=== PATIENT | male | born 1970 | race Two or more races ===

== ENCOUNTER 2017-06-20 06:22 | Day surgery (SDC) | payer BC ==
[~2017-06-20 06:22] MED LIST: KETOROLAC TROMETHAMINE 0.45% 4 DROP/0.4 ML DROPERETTE OD PRN
[2017-06-20] MEDS ORDERED: MIDAZOLAM 2 MG/2 ML INJ ONE (06:53)
[2017-06-20] MEDS ORDERED: FENTANYL CITRATE INJ/PF 100 MCG/2 ML AMPUL ONE (06:53)
[2017-06-20] MEDS: TROPICAMIDE 1% OPH SOLN 3 ML OD PRN ×3 (06:54→07:14)
[2017-06-20] MEDS: BESIFLOXACIN HCL 0.6% OPH SUSP 5 ML BOTTLE OD PRN ×3 (06:54→08:03)
[2017-06-20] MEDS: CYCLOPENTOLATE 0.2%/PHENYLEPHRINE 1% OPH SOLN 2 ML OD PRN ×3 (06:54→07:14)
[2017-06-20] MEDS: TETRACAINE HCL 0.5% OPH SOLN 2 ML OD PRN ×3 (06:55→07:40)
[2017-06-20] MEDS ORDERED: LIDOCAINE 1% INJ-PF (10 MG/ML) 30 ML SDV ONE (07:12)
[2017-06-20] MEDS ORDERED: CHONDR SU A NA/HYALUR INTRAOC KIT (SURGICARE) ONE (07:12)
[2017-06-20] MEDS ORDERED: EPINEPHRINE INJ/PF 1 MG/1 ML AMPULE ONE (07:12)
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
--- NOTE | 2017-06-20 20:33 | [facility] OPERATIVE REPORT E ---
[facility] Operative Report NAME: DEMARIO AMEZQUITA AGE: 47Y DATE OF SURGERY: 06/20/2017 ROOM: PREOPERATIVE DIAGNOSIS: CATARACT, RIGHT EYE. POSTOPERATIVE DIAGNOSIS: CATARACT, RIGHT EYE. OPERATION: Cataract extraction with intraocular lens implant of the right eye. SURGEON: WILBERTO SYKES M.D. ANESTHESIA: Topical. PROCEDURE: After obtaining appropriate consent, the patient's right eye was prepped and draped in sterile fashion as well as the surgeon in a sterile manner and cataract surgery was started. First a paracentesis blade was used to make a small side-port incision. Viscoelastic was used to inflate the anterior chamber. Next a 2.4 mm incision was made with the paracentesis blade. A continuous capsulorrhexis incision was made using a cystotome and Utrata forceps. Following this hydrodissection was carried out to make the lens fully loose and mobile and it was rotated 90 degrees. Following this, a yvdrzf-wbv-ugygfsf technique was used to phacoemulsify the lens with a CDE of 8.77. The remaining cortex was removed with irrigation/aspiration. Provisc was instilled into the capsular bag to inflate the bag. A SN60WF, 18.5 diopter lens was placed. The remaining viscoelastic material was removed with irrigation/aspiration. Following this, a 10-0 nylon suture was used to close the incision and it was found to be watertight. Vigamox was instilled in the eye and a protective shield was placed over the eye. The patient returned to the postoperative recovery in stable condition. DICTATING PHYSICIAN: WILBERTO SYKES M.D. [id number] PHY#: [id number] 2014 ID: [id number] JOB#: [id number] ACCT: [id number] cc:WILBERTO SYKES M.D. >
== END 2017-06-20 08:45 | disposition home or self-care (01) ==
LOC: SC 06:22 → EDBD 10:30
PROVIDERS: ATTEND Internal Medicine
PROC: 08RJ3JZ Replacement of Right Lens with Synthetic Substitute, Percutaneous Approach (ICD-10-PCS; principal; 2017-06-20 07:30)
DX: H25.041 Posterior subcapsular polar age-related cataract, right eye (principal); H25.12 Age-related nuclear cataract, left eye
CPT/HCPCS: 66984; V2632; J2250; J3490 ×2; J0171; J3010; 142

== ENCOUNTER 2020-05-27 07:41 | Inpatient (IN) | payer BC ==
[2020-05-27 08:45] LABS: VENOUS BLOOD BASE EXCESS 2.7 mmol/L; VENOUS BLOOD HCO3 28.4 mmol/L (20-32); VENOUS BLOOD PCO2 47.5 mmHg (35-63); VENOUS BLOOD PH 7.4 (7.30-7.42)
[2020-05-27 08:52] LABS: ABSOLUTE LYMPHOCYTES (AUTO) 0.9 10^3/uL (0.5-4.7); ABSOLUTE MONOCYTES (AUTO) 0.3 10^3/uL (0.1-1.4); ABSOLUTE NEUT (AUTO) 10.5 10^3/uL (1.7-8.2); BASOPHILS % (AUTO) 0.1 % (0-2); HEMATOCRIT 43.2 % (37.9-51.0); HEMOGLOBIN 14.9 g/dL (13.5-17.0); LYMPHOCYTES % (AUTO) 7.7 % (13-45); MEAN CORPUSCULAR HEMOGLOBIN 34.4 pg (27.0-33.4); MEAN CORPUSCULAR HGB CONC 34.4 g/dL (32.0-36.0); MEAN CORPUSCULAR VOLUME 100 fl (80-97); MONOCYTES % (AUTO) 2.5 % (3-13); PLATELET COUNT 102 10^3/uL (150-450); RED BLOOD COUNT 4.33 10^6/uL (4.35-5.55); RED CELL DISTRIBUTION WIDTH 14.6 % (11.5-14.0); SEGMENTED NEUTROPHILS % (AUTO) 89.7 % (42-78); TOTAL CELLS COUNTED % (AUTO) 100 %; WHITE BLOOD COUNT 11.7 10^3/uL (4.0-10.5)
--- NOTE | 2020-05-27 08:55 | RADIOLOGY REPORT (SQ) ---
EXAM DESCRIPTION: CHEST SINGLE VIEW IMAGES COMPLETED DATE/TIME: 05/27/2020 8:43 am REASON FOR STUDY: shortness of breath COMPARISON: None. EXAM PARAMETERS: NUMBER OF VIEWS: One view. TECHNIQUE: Single frontal radiographic view of the chest acquired. RADIATION DOSE: NA LIMITATIONS: None. FINDINGS: LUNGS AND PLEURA: Multifocal airspace opacities. MEDIASTINUM AND HILAR STRUCTURES: No masses. Contour normal. HEART AND VASCULAR STRUCTURES: Heart normal in size. Normal vasculature. BONES: No acute findings. HARDWARE: None in the chest. OTHER: No other significant finding. IMPRESSION: Multi lobar pneumonia. Given distribution, recommend consideration for atypical etiolog ies in treatment planning. TECHNICAL DOCUMENTATION: JOB ID: [id number] 2010 [employer]- All Rights Reserved Reading location - IP/workstation name: [email or web address]
[2020-05-27 09:02] LABS: ALBUMIN 2.9 g/dL (3.5-5.0); ALKALINE PHOSPHATASE 369 U/L (38-126); ANION GAP 8 (5-19); ASPARTATE AMINO TRANSFERASE 416 U/L (17-59); BILIRUBIN,DIRECT 1.8 mg/dL (0.0-0.4); BILIRUBIN,TOTAL 2.4 mg/dL (0.2-1.3); BLOOD UREA NITROGEN 9 mg/dL (7-20); CALCIUM 7.9 mg/dL (8.4-10.2); CARBON DIOXIDE 26 mmol/L (22-30); CHLORIDE 102 mmol/L (98-107); CREATINE KINASE 165 U/L (55-170); GLUCOSE 125 mg/dL (75-110); POTASSIUM 3.7 mmol/L (3.6-5.0); TOTAL PROTEIN 7.7 g/dL (6.3-8.2)
[2020-05-27] MEDS ORDERED: NORMAL SALINE 1000 ML 1,000 ML IV ONE (09:11)
[2020-05-27 09:12] LABS: CREATINE KINASE MB 1.07 ng/mL (<4.55)
[2020-05-27] MEDS ORDERED: CEFEPIME 2 GM/D5W RTU 2 GM/50 ML RTUPB IV ONE (09:14)
[2020-05-27] MEDS ORDERED: VANCOMYCIN HCL INJ 1000 MG VIAL IV ONE (09:15)
[2020-05-27 09:23] LABS: TROPONIN I < 0.012 ng/mL
[2020-05-27 10:09] LABS: ACETAMINOPHEN < 10 ug/mL (10-30)
--- NOTE | 2020-05-27 11:43 | ER Document Report ---
Entered by ELIANE YANES SCRIBE 05/27/20 0908 Acting as scribe for:LELAND ALMENDAREZ MD ED Respiratory Problem - General Chief Complaint: Breathing Difficulty Stated Complaint: CHEST PAIN/DIFFICULTY BREATHING Mode of Arrival: Wheelchair Information source: Patient Notes: This 50 year old male patient with no significant past medical history presents to the ED today with complaints of worsening shortness of breath and nonproductive cough that started x3 days ago. Patient states that he he noticed blood along with mucus out of his right nare after blowing his nose and that he is unsure of whether or not he had a fever. He also notes abdominal pain due to coughing. Denies any chest pain, headache, or sick contacts. 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 He does not take any medications or have any allergies. TRAVEL OUTSIDE OF THE [place] IN LAST 30 DAYS: Yes - Related Data Allergies/Adverse Reactions: No Known Allergies Allergy (Verified 06/20/17 06:50) Past Medical History - General Information source: Patient - Social History Smoking Status: Never Smoker Cigarette use (# per day): No Chew tobacco use (# tins/day): No Smoking Education Provided: No Frequency of alcohol use: None Drug Abuse: None Family History: Reviewed & Not Pertinent Patient has suicidal ideation: No Patient has homicidal ideation: No - Medical History Medical History: Negative Surgical Hx: Negative Review of Systems - Review of Systems Constitutional: See HPI EENT: See HPI, Nose discharge Cardiovascular: See HPI. denies: Chest pain Respiratory: See HPI, Cough, Short of breath. denies: Sputum Gastrointestinal: See HPI, Abdominal pain Genitourinary: No symptoms reported Male Genitourinary: No symptoms reported Musculoskeletal: No symptoms reported Skin: No symptoms reported Hematologic/Lymphatic: No symptoms reported Neurological/Psychological: See HPI. denies: Headaches -: Yes All other systems reviewed and negative Physical Exam - Vital signs Vitals: Temp Pulse Resp BP Pulse Ox 99.6 F 98 20 143/74 H 88 L 05/27/20 07:59 05/27/20 07:59 05/27/20 07:59 05/27/20 07:59 05/27/20 07:59 - General General appearance: Alert In distress: None - HEENT Head: Normocephalic, Atraumatic Eyes: Normal Extraocular movements intact: Yes Pupils: PERRL Pharynx: Erythema - mild Neck: Supple - Respiratory Chest status: Nontender Breath sounds: Decreased air movement - Diminished breath sound in bilateral bases, Rales - right base Chest palpation: Normal Notes: When patient was placed in the room, he was tachypneic and hypoxic, 88% on RA. Once placed on supplemental oxygen, sats came up to 95%. - Cardiovascular Rhythm: Regular. No: Tachycardia Heart sounds: Normal auscultation Murmur: No Friction rub: No Gallop: None auscultated - Abdominal Inspection: Obese Distension: No distension Bowel sounds: Normal Tenderness: Nontender - Abdomen soft, no point tenderness Organomegaly: No organomegaly - Back Back: Normal, Nontender - Extremities General upper extremity: Normal inspection General lower extremity: Normal inspection. No: Edema - Neurological Neuro grossly intact: Yes Orientation: AAOx4 [place] Coma Scale Eye Opening: Spontaneous [place] Coma Scale Verbal: Oriented [place] Coma Scale Motor: Obeys Commands Mina Coma Scale Total: 15 - Psychological Associated symptoms: Normal affect, Normal mood - Skin Skin Temperature: Warm Skin Moisture: Dry Skin Color: Normal Course - Re-evaluation Re-evalutation: 05/29/20 07:17 Patient resting comfortably on oxygen to maintain normal O2 sats. - Vital Signs Vital signs: Temp Pulse Resp BP Pulse Ox 96.9 F L 62 28 H 138/82 H 97 05/29/20 05:32 05/29/20 05:32 05/29/20 05:32 05/29/20 05:32 05/29/20 05:32 05/29/20 07:18 Vital signs stable pulse oximetry 97% - Laboratory Result Diagrams: 05/28/20 05:20 05/28/20 05:20 Laboratory results interpreted by me: 05/27/20 05/27/20 05/27/20 08:23 08:23 08:23 WBC 11.7 H RBC 4.33 L MCV 100 H MCH 34.4 H RDW 14.6 H Plt Count 102 L Lymph % (Auto) 7.7 L [place] % (Auto) 2.5 L Absolute Neuts (auto) 10.5 H Seg Neutrophils % 89.7 H D-Dimer Sodium 135.5 L Glucose 125 H Lactic Acid 2.5 H Calcium 7.9 L Ferritin Total Bilirubin 2.4 H Direct Bilirubin 1.8 H AST 416 H ALT 155 H Alkaline Phosphatase 369 H Lactate Dehydrogenase Albumin 2.9 L Acetaminophen COVID-19 ([place]) 05/27/20 05/27/20 05/27/20 08:23 08:23 08:23 WBC RBC MCV MCH RDW Plt Count Lymph % (Auto) [place] % (Auto) Absolute Neuts (auto) Seg Neutrophils % D-Dimer 1.29 H Sodium Glucose Lactic Acid Calcium Ferritin 1600.00 H Total Bilirubin Direct Bilirubin AST ALT Alkaline Phosphatase Lactate Dehydrogenase 408 H Albumin Acetaminophen < 10 L COVID-19 ([place]) 05/27/20 09:10 WBC RBC MCV MCH RDW Plt Count Lymph % (Auto) [place] % (Auto) Absolute Neuts (auto) Seg Neutrophils % D-Dimer Sodium Glucose Lactic Acid Calcium Ferritin Total Bilirubin Direct Bilirubin AST ALT Alkaline Phosphatase Lactate Dehydrogenase Albumin Acetaminophen COVID-19 ([place]) DETECTED H 05/29/20 07:18 Laboratories disclose mildly elevated white blood cell count 11.7 in an elevated ferritin elevated LDH lactate dehydrogenase. - Diagnostic Test Radiology reviewed: Image reviewed, Reports reviewed Radiology results interpreted by me: Chest X-Ray 05/27/20 08:31 IMPRESSION: Multi lobar pneumonia. Given distribution, recommend consideration for atypical etiologies in treatment planning. Abdomen Ultrasound 05/27/20 09:16 IMPRESSION: No evidence of cholelithiasis or cholecystitis. Nonvisualization of the pancreas and abdominal aorta due to obscuration by intervening bowel gas. Otherwise unremarkable examination. Chest/Abdomen CTA 05/27/20 11:25 IMPRESSION: 1. No evidence for acute pulmonary emboli. 2. Extensive bilateral multifocal peripheral and parenchymal ground-glass opacities/consolidation and areas of consolidation in the lower lobes bilaterally. Commonly reported imaging features of COVID-19 pneumonia are present. 3. Mediastinal and right hilar lymphadenopathy. 3. Additional findings as above. Abdomen/Pelvis CT 05/27/20 11:26 IMPRESSION: 1. Hepatic steatosis. 2. Prominence of the gallbladder wall. No gallstones. 3. Small uncomplicated inguinal hernias. 05/29/20 07:27 Radiology reports show that there is multi lobar pneumonia with groundglass opacities and consolidation. Also no evidence for pulmonary embolus on CT angiogram. Abdomen and pelvis CT did show a prominent gallbladder without any other significant findings of infection or inflammation about the biliary tree system. Abdominal ultrasound also disclose no evidence for cholelithiasis or cholecystitis. - EKG Interpretation by Me Additional EKG results interpreted by me: 05/29/20 07:28 Twelve-lead EKG shows normal sinus rhythm rate of 94 probable left atrial abnormality otherwise normal axis normal intervals WI interval QRS and QT. No signs of acute ST elevations. Discharge - Discharge Clinical Impression: Bilateral pneumonia, Hypoxia, Suspected COVID-19 virus infection Condition: Critical Disposition: ADMITTED INPATIENT Admitting Provider: Mg (Hospitalist) Unit Admitted: IMCU I personally performed the services described in the documentation, reviewed and edited the documentation which was dictated to the scribe in my presence, and it accurately records my words and actions.
--- NOTE | 2020-05-27 12:14 | RADIOLOGY REPORT (SQ) ---
EXAM DESCRIPTION: U/S ABDOMEN LIMITED W/O DOP IMAGES COMPLETED DATE/TIME: 05/27/2020 11:28 am REASON FOR STUDY: elevated LFTs COMPARISON: None. TECHNIQUE: Dynamic and static grayscale images acquired of the abdomen and recorded on PACS. Additio nal selected color Doppler and spectral images recorded. LIMITATIONS: None. FINDINGS: PANCREAS: Largely obscured by intervening bowel gas. LIVER: No masses. Echotexture normal. LIVER VASCULATURE: Normal directional flow of the main portal vein and hepatic veins. GALLBLADDER: No stones. Normal wall thickness. No pericholecystic fluid. ULTRASOUND-DETECTED MASTERSON'S SIGN: Negative. INTRAHEPATIC DUCTS AND COMMON DUCT: CBD and intrahepatic ducts normal caliber. No filling defects. INFERIOR VENA CAVA: Normal flow. AORTA: Largely obscured by intervening bowel gas. RIGHT KIDNEY: Normal size. Normal echogenicity. No solid or suspicious masses. No hydronephrosis. No calcifications. PERITONEAL AND RIGHT PLEURAL SPACE: No ascites or effusions. OTHER: No other significant findings. IMPRESSION: No evidence of cholelithiasis or cholecystitis. Nonvisualization of the pancreas and ab dominal aorta due to obscuration by intervening bowel gas. Otherwise unremarkable examination. TECHNICAL DOCUMENTATION: JOB ID: [id number] 2010 [employer]- All Rights Reserved Reading location - IP/workstation name: [email or web address]
--- NOTE | 2020-05-27 12:47 | RADIOLOGY REPORT (SQ) ---
EXAM DESCRIPTION: CT ABD/PELVIS WITH IV ONLY IMAGES COMPLETED DATE/TIME: 05/27/2020 12:32 pm REASON FOR STUDY: elevated LFTs/abd pain COMPARISON: None. TECHNIQUE: CT scan of the abdomen and pelvis performed using helical scanning technique with dynamic intravenous contrast injection. No oral contrast. Images reviewed with lung, soft tissue, and bone windows. Reconstructed coronal and sagittal MPR images reviewed. Delayed images for evaluation of the urinary system also acquired. All images stored on PACS. All CT scanners at this facility use dose modulation, iterative reconstruction, and/or weight based d osing when appropriate to reduce radiation dose to as low as reasonably achievable (ALARA). [facility]: Dose Right [facility]: CareDose [facility]: Dose Right [facility]: Teradose 4D [facility]: Philtro CONTRAST TYPE AND DOSE: contrast/concentration: Isovue 350.00 mmol/ml; Total Contrast Delivered: 100 .0 ml; Total Saline Delivered: 90.0 ml RENAL FUNCTION: BUN 9 creatinine 0.67 RADIATION DOSE: . LIMITATIONS: None. FINDINGS: LOWER CHEST: See separate report of the CT of the chest. LIVER: The liver is diffusely hypoattenuating. No hepatic mass is seen. SPLEEN: Normal size. No focal lesions. PANCREAS: No masses. No significant calcifications. No adjacent inflammation or peripancreatic fluid collections. Pancreatic duct not dilated. GALLBLADDER: There appears to be mild prominence of the gallbladder wall. No gallstones are seen. ADRENAL GLANDS: No significant masses or asymmetry. RIGHT KIDNEY AND URETER: No solid masses. No significant calcifications. No hydronephrosis or hyd roureter. LEFT KIDNEY AND URETER: No solid masses. No significant calcifications. No hydronephrosis or hydr oureter. AORTA AND VESSELS: No aneurysm. No dissection. Renal arteries, SMA, celiac without stenosis. RETROPERITONEUM: No retroperitoneal adenopathy, hemorrhage or masses. BOWEL AND PERITONEAL CAVITY: No masses or inflammatory changes. No free fluid or peritoneal masses. APPENDIX: Normal. PELVIS: No mass. No free fluid. Normal bladder. ABDOMINAL WALL: Bilateral small uncomplicated inguinal hernias are present. BONES: No significant or acute findings. OTHER: No other significant finding. IMPRESSION: 1. Hepatic steatosis. 2. Prominence of the gallbladder wall. No gallstones. 3. Small uncomplicated inguinal hernias. TECHNICAL DOCUMENTATION: JOB ID: [id number] Quality ID # [id number]: Final reports with documentation of one or more dose reduction techniques (e.g., Au tomated exposure control, adjustment of the mA and/or kV according to patient size, use of iterative reconstruction technique) 2010 [employer]- All Rights Reserved Reading location - IP/workstation name: [email or web address]
--- NOTE | 2020-05-27 12:56 | RADIOLOGY REPORT (SQ) ---
EXAM DESCRIPTION: CTA CHEST IMAGES COMPLETED DATE/TIME: 05/27/2020 12:31 pm REASON FOR STUDY: sobr/ddimer elev/bilat infiltrates/covid suspicion COMPARISON: None. TECHNIQUE: CT scan of the chest performed using helical scanning technique with dynamic intravenous contrast injection. Images reviewed with lung, soft tissue and bone windows. Reconstructed coronal and sagittal MPR images reviewed. Additional 3 dimensional post-processing performed to develop Maximal Intensity Projection images (NM P). All images stored on PACS. All CT scanners at this facility use dose modulation, iterative reconstruction, and/or weight based d osing when appropriate to reduce radiation dose to as low as reasonably achievable (ALARA). [facility]: Dose Right [facility]: CareDose [facility]: Dose Right [facility]: Teradose 4D [facility]: Amplify.LA CONTRAST TYPE AND DOSE: 100 ml Omnipaque 350 contrast bolus optimized for the pulmonary arteries. Not diagnostic for the aorta. RENAL FUNCTION: Creatinine - 0.67 BUN=9 RADIATION DOSE: CT Rad equipment meets quality standard of care and radiation dose reduction techniq ues were employed. CTDIvol: NaN - NaN mGy. DLP: 0 mGy-cm. . LIMITATIONS: None. FINDINGS: LUNGS AND PLEURA: Bilateral fairly multifocal extensive peripheral and parenchymal ground -glass opacities/consolidation and areas of consolidation in the lower lobes bilaterally with associa nancy air bronchograms. No pneumothorax. Very small left pleural effusion. The central airways are c lear. AORTA AND GREAT VESSELS: Great vessels are patent. No aneurysm. Contrast bolus not optimized for t he aorta. HEART: No pericardial effusion. No significant coronary artery calcifications. PULMONARY ARTERIES: No emboli visualized in the main pulmonary arteries or the segmental branches. HILAR AND MEDIASTINAL STRUCTURES: Prominent mediastinal and right hilar adenopathy, one of the large st lymph nodes is noted in the right paratracheal region measures 2.7 in AP diameter. HARDWARE: None in the chest. UPPER ABDOMEN: Please see CT abdomen report. THYROID AND OTHER SOFT TISSUES: The visualized thyroid gland is heterogenous in appearance with smal l nodules present. BONES: No acute or significant finding. 3D MIPS: Confirm above findings. OTHER: No other significant finding. IMPRESSION: 1. No evidence for acute pulmonary emboli. 2. Extensive bilateral multifocal peripheral and parenchymal ground-glass opacities/consolidation an d areas of consolidation in the lower lobes bilaterally. Commonly reported imaging features of COVID -19 pneumonia are present. 3. Mediastinal and right hilar lymphadenopathy. 3. Additional findings as above. COMMENT: 1. The results of this examination were discussed with the emergency department provider o n 05/27/2020 at 12:46 hours. Quality ID # [id number]: Final reports with documentation of one or more dose reduction techniques (e.g., Au tomated exposure control, adjustment of the mA and/or kV according to patient size, use of iterative reconstruction technique) TECHNICAL DOCUMENTATION: JOB ID: [id number] 2010 [employer]- All Rights Reserved Reading location - IP/workstation name: [email or web address]
[2020-05-27] MEDS ORDERED: ZOLPIDEM TARTRATE 5 MG TABLET PO PRN (14:29)
[2020-05-27] MEDS ORDERED: IPRATROPIUM/ALBUTEROL 0.5-2.5 MG/3 ML AMPUL NEB PRN (14:29)
[2020-05-27] MEDS ORDERED: ONDANSETRON 4 MG TAB.RAPDIS PO PRN (14:29)
[2020-05-27] MEDS ORDERED: ZINC SULFATE 220 MG CAPSULE PO ONE (14:40)
[2020-05-27] MEDS ORDERED: CHOLECALCIFEROL (D3) 400 UNIT TABLET PO SCH (15:00)
--- NOTE | 2020-05-27 16:55 | EKG REPORT ---
SEVERITY:- BORDERLINE ECG - SINUS RHYTHM PROBABLE LEFT ATRIAL ABNORMALITY : Confirmed by: Syed Cee MD 27-May-2020 16:55:05
--- NOTE | 2020-05-27 16:57 | PDOC H&P ---
History of Present Illness Admission Date/PCP: 05/27/20 14:17 Patient complains of: 50-year-old patient presents to the ED with complaints of worsening shortness of breath, cough associated with blood which started about 3 days ago. History of Present Illness: DEMARIO AMEZQUITA is a 50 year old male 50-year-old patient presents to the ED with complaints of worsening shortness of breath, cough associated with blood which started about 3 days ago. Also complains of abdominal pain due to coughing. He works at a [employer]. Was tachypneic and hypoxic initially with a saturation of 88% which improved with supplemental oxygen CT scan of the chest shows extensive bilateral multifocal peripheral and parenchymal groundglass opacitiesconsolidation and areas of consolidation in the lower lobes bilaterally. Currently reported imaging features of COVID-19 pneumonia are present. There is also mediastinal and right hilar lymphadenopathy. Chest x-ray shows multilobar pneumonia. CT of the abdomen shows hepatic steatosis Past Medical History Cardiac Medical History: Denies: Myocardial Infarction, Hypertension Pulmonary Medical History: Denies: Asthma Neurological Medical History: Denies: Seizures GI Medical History: Denies: Hepatitis, Hiatal Hernia Hematology: Denies: Anemia, Sickle Cell Disease Past Surgical History Past Surgical History: Denies: Pacemaker Social History Information Source: Patient Smoking Status: Never Smoker - Advance Directive Resuscitation Status: Full Code Family History Family History: Reviewed & Not Pertinent Parental Family History Reviewed: No Children Family History Reviewed: No Sibling(s) Family History Reviewed.: No Medication/Allergy Allergies/Adverse Reactions: No Known Allergies Allergy (Verified 06/20/17 06:50) Review of Systems ROS unobtainable: Other - Due to respiratory status Physical Exam Vital Signs: Temp Pulse Resp BP Pulse Ox 99.6 F 98 31 H 122/83 94 05/27/20 07:59 05/27/20 07:59 05/27/20 13:00 05/27/20 12:01 05/27/20 12:01 Intake & Output 05/26/20 05/27/20 05/28/20 06:59 06:59 06:59 Intake Total 1300 Balance 1300 Weight 81.193 kg General appearance: PRESENT: no acute distress, well-developed, well-nourished Head exam: PRESENT: atraumatic, normocephalic Eye exam: PRESENT: conjunctiva pink, EOMI, PERRLA. ABSENT: scleral icterus Ear exam: PRESENT: normal external ear exam Mouth exam: PRESENT: moist, tongue midline Neck exam: ABSENT: carotid bruit, JVD, lymphadenopathy, thyromegaly Respiratory exam: PRESENT: clear to auscultation mayela. ABSENT: rales, rhonchi, wheezes Cardiovascular exam: PRESENT: RRR. ABSENT: diastolic murmur, rubs, systolic murmur Pulses: PRESENT: normal dorsalis pedis pul Vascular exam: PRESENT: normal capillary refill GI/Abdominal exam: PRESENT: normal bowel sounds, soft. ABSENT: distended, guarding, mass, organolmegaly, rebound, tenderness Rectal exam: PRESENT: deferred Extremities exam: PRESENT: full ROM. ABSENT: calf tenderness, clubbing, pedal edema Neurological exam: PRESENT: alert, awake, oriented to person, oriented to place, oriented to time, oriented to situation, CN II-XII grossly intact. ABSENT: motor sensory deficit Psychiatric exam: PRESENT: appropriate affect, normal mood. ABSENT: homicidal ideation, suicidal ideation Skin exam: PRESENT: dry, intact, warm. ABSENT: cyanosis, rash Results Laboratory Results: 05/27/20 08:23 05/27/20 08:23 05/27/20 05/27/20 05/27/20 08:23 08:23 08:23 WBC 11.7 H RBC 4.33 L Hgb 14.9 Hct 43.2 MCV 100 H MCH 34.4 H MCHC 34.4 RDW 14.6 H Plt Count 102 L Seg Neutrophils % 89.7 H VBG pH VBG pCO2 VBG HCO3 VBG Base Excess Sodium 135.5 L Potassium 3.7 Chloride 102 Carbon Dioxide 26 Anion Gap 8 BUN 9 Creatinine 0.67 Est GFR ( Amer) > 60 Glucose 125 H Lactic Acid 2.5 H Calcium 7.9 L Ferritin Total Bilirubin 2.4 H AST 416 H Alkaline Phosphatase 369 H Total Protein 7.7 Albumin 2.9 L Lipase 05/27/20 05/27/20 05/27/20 08:23 08:23 08:23 WBC RBC Hgb Hct MCV MCH MCHC RDW Plt Count Seg Neutrophils % VBG pH 7.40 VBG pCO2 47.5 VBG HCO3 28.4 VBG Base Excess 2.7 Sodium Potassium Chloride Carbon Dioxide Anion Gap BUN Creatinine Est GFR ( Amer) Glucose Lactic Acid Calcium Ferritin 1600.00 H Total Bilirubin AST Alkaline Phosphatase Total Protein Albumin Lipase 196.1 05/27/20 05/27/20 08:23 08:23 Creatine Kinase 165 CK-MB (CK-2) 1.07 Troponin I < 0.012 Impressions: Chest X-Ray 05/27/20 08:31 IMPRESSION: Multi lobar pneumonia. Given distribution, recommend consideration for atypical etiologies in treatment planning. Abdomen Ultrasound 05/27/20 09:16 IMPRESSION: No evidence of cholelithiasis or cholecystitis. Nonvisualization of the pancreas and abdominal aorta due to obscuration by intervening bowel gas. Otherwise unremarkable examination. Chest/Abdomen CTA 05/27/20 11:25 IMPRESSION: 1. No evidence for acute pulmonary emboli. 2. Extensive bilateral multifocal peripheral and parenchymal ground-glass opacities/consolidation and areas of consolidation in the lower lobes bilaterally. Commonly reported imaging features of COVID-19 pneumonia are present. 3. Mediastinal and right hilar lymphadenopathy. 3. Additional findings as above. Abdomen/Pelvis CT 05/27/20 11:26 IMPRESSION: 1. Hepatic steatosis. 2. Prominence of the gallbladder wall. No gallstones. 3. Small uncomplicated inguinal hernias. Assessment and Plan - Diagnosis (1) Acute respiratory failure due to COVID-19 Is this a current diagnosis for this admission?: Yes (2) Transaminitis Is this a current diagnosis for this admission?: Yes (3) Bilateral pneumonia Is this a current diagnosis for this admission?: Yes (4) Hypoxia Is this a current diagnosis for this admission?: Yes (5) Sepsis Is this a current diagnosis for this admission?: Yes - Plan Summary Summary: Patient presents to the hospital with acute respiratory failure. He was found to be hypoxic with oxygen saturation of 88%, tachypneic with his respiratory rate as high as 37 as well as a transaminitis and bilateral lung opacities consistent with COVID-19. Patient is septic secondary to COVID-19. He received cefepime in the emergency room however patient will be placed on Zithromax, dexamethasone, and supplements including zinc and vitamin D3. I did contact pharmacy for initiating from this vi but at this time he has not met the hospitals criteria which include a positive COVID test and so we will follow-up with this subsequently. Patient is also noted to have a transaminitis likely secondary to COVID - Time Time Spent with patient: 35 or more minutes Medications reviewed and adjusted accordingly: Yes Anticipated Discharge Disposition: Home, Self Care Anticipated Discharge Timeframe: within 72 hours - Inpatient Certification I certify that my determination is in accordance with my understanding of Medicare's requirements for reasonable and necessary INPATIENT services [42 CFR 412.3e].: Yes Medical Necessity: Significant Comorbidiites Make Outpatient Treatment Too Risky, Need Close Monitoring Due to Risk of Patient Decompensation, Need for IV Antibiotics, Risk of Complication if Not Cared For in Hospital
[2020-05-27] MEDS: AZITHROMYCIN 500 MG in DEXTROSE 5%-WATER 250 ML IV SCH (17:00)
[2020-05-27] MEDS: DEXAMETHASONE SOD PHOS INJ 10 MG/1 ML VIAL IV SCH (17:00)
[2020-05-27] MEDS: NORMAL SALINE 1000 ML 1,000 ML IV PRN (22:29)
[2020-05-28 05:31] LABS: ABSOLUTE LYMPHOCYTES (AUTO) 0.9 10^3/uL (0.5-4.7); ABSOLUTE MONOCYTES (AUTO) 0.2 10^3/uL (0.1-1.4); ABSOLUTE NEUT (AUTO) 4.4 10^3/uL (1.7-8.2); BASOPHILS % (AUTO) 0.2 % (0-2); HEMATOCRIT 41.5 % (37.9-51.0); HEMOGLOBIN 14.6 g/dL (13.5-17.0); LYMPHOCYTES % (AUTO) 16.5 % (13-45); MEAN CORPUSCULAR HEMOGLOBIN 34.7 pg (27.0-33.4); MEAN CORPUSCULAR HGB CONC 35.2 g/dL (32.0-36.0); MEAN CORPUSCULAR VOLUME 99 fl (80-97); MONOCYTES % (AUTO) 3.6 % (3-13); RED BLOOD COUNT 4.21 10^6/uL (4.35-5.55); RED CELL DISTRIBUTION WIDTH 14.8 % (11.5-14.0); SEGMENTED NEUTROPHILS % (AUTO) 79.7 % (42-78); TOTAL CELLS COUNTED % (AUTO) 100 %; WHITE BLOOD COUNT 5.5 10^3/uL (4.0-10.5)
[2020-05-28] MEDS: PANTOPRAZOLE SODIUM 40 MG TABLET.DR PO SCH (05:31)
[2020-05-28 05:52] LABS: ALBUMIN 2.4 g/dL (3.5-5.0); ALKALINE PHOSPHATASE 330 U/L (38-126); ANION GAP 5 (5-19); ASPARTATE AMINO TRANSFERASE 257 U/L (17-59); BILIRUBIN,TOTAL 1.6 mg/dL (0.2-1.3); BLOOD UREA NITROGEN 11 mg/dL (7-20); CALCIUM 7.4 mg/dL (8.4-10.2); CARBON DIOXIDE 23 mmol/L (22-30); CHLORIDE 108 mmol/L (98-107); GLUCOSE 132 mg/dL (75-110); POTASSIUM 4.2 mmol/L (3.6-5.0); TOTAL PROTEIN 6.7 g/dL (6.3-8.2)
[2020-05-28] MEDS ORDERED: ASCORBIC ACID 500 MG TABLET PO ONE (06:14)
[2020-05-28] MEDS ORDERED: ALBUTEROL SULFATE HFA (90 MCG/PUFF) 8 GM MDI IH PRN (06:16)
[2020-05-28 06:20] LABS: PLATELET COUNT 92 10^3/uL (150-450)
[2020-05-28 07:02] LABS: ARTERIAL BLOOD BASE EXCESS -1.3 mmol/L; ARTERIAL BLOOD FIO2 10L; ARTERIAL BLOOD H2CO3 1.16 mmol/L (1.05-1.35); ARTERIAL BLOOD HCO3 23.1 mmol/L (20-24); ARTERIAL BLOOD O2 SATURATION 92.1 % (94-98); ARTERIAL BLOOD PCO2 38.4 mmHg (35-45); ARTERIAL BLOOD PO2 62.6 mmHg (80-100); ARTERIAL BLOOD TOTAL CO2 24.3 mmol/L (23-27)
[2020-05-28] MEDS: NORMAL SALINE 1000 ML 1,000 ML IV PRN ×2 (08:53→19:40)
--- NOTE | 2020-05-28 09:27 | RADIOLOGY REPORT (SQ) ---
EXAM DESCRIPTION: CHEST SINGLE VIEW IMAGES COMPLETED DATE/TIME: 05/28/2020 5:29 am REASON FOR STUDY: COVID COMPARISON: 05/27/2020 NUMBER OF VIEWS: One view. TECHNIQUE: Single frontal radiographic image of the chest acquired. LIMITATIONS: Poor inspiratory effort. FINDINGS: LUNGS AND PLEURA: Bilateral airspace disease, left greater than right not significantly ch anged. MEDIASTINUM AND HEART: Stable heart size and mediastinal structures. BONY STRUCTURES: No acute findings. HARDWARE: None. OTHER: No other significant finding. IMPRESSION: No significant change. TECHNICAL DOCUMENTATION: JOB ID: [id number] Reading location - IP/workstation name: [email or web address]
[2020-05-28] MEDS ORDERED: ENOXAPARIN SODIUM INJ 40 MG/0.4 ML DISP.SYRIN SUBCUT SCH (10:00)
[2020-05-28] MEDS: CHOLECALCIFEROL (D3) 1,000 UNIT (25 MCG) TABLET PO SCH (10:12)
[2020-05-28] MEDS: ZINC SULFATE 220 MG CAPSULE PO SCH (10:12)
[2020-05-28] MEDS: DEXAMETHASONE SOD PHOS INJ 10 MG/1 ML VIAL IV SCH (10:13)
[2020-05-28] MEDS: ENOXAPARIN SODIUM INJ 40 MG/0.4 ML DISP.SYRIN SUBCUT SCH ×2 (10:14→21:13)
[2020-05-28] MEDS: AZITHROMYCIN 500 MG in DEXTROSE 5%-WATER 250 ML IV SCH (11:46)
--- NOTE | 2020-05-28 17:54 | PDOC PROGRESS REPORT ---
Subjective Progress Note for:: 05/28/20 Subjective:: Patient's breathing remains pretty tenuous. He decompensates with attempts to decrease his oxygen. When I saw him this morning he was on 10 L oxygen with facemask. COVID-19 test is still pending Reason For Visit: ATYPICAL PNEUMONIA, R/O COVID 19,ACUTE RESPIRATORY Physical Exam Vital Signs: Temp Pulse Resp BP Pulse Ox 98.4 F 71 27 H 142/92 H 94 05/28/20 16:40 05/28/20 16:40 05/28/20 16:40 05/28/20 16:40 05/28/20 16:40 Intake & Output 05/27/20 05/28/20 05/29/20 06:59 06:59 06:59 Intake Total 1800 1510 Output Total 1400 360 Balance 400 1150 Weight 84.6 kg General appearance: PRESENT: no acute distress Head exam: PRESENT: atraumatic, normocephalic Eye exam: PRESENT: PERRLA. ABSENT: scleral icterus Mouth exam: PRESENT: moist, tongue midline Neck exam: ABSENT: carotid bruit, JVD, lymphadenopathy, thyromegaly Respiratory exam: PRESENT: decreased breath sounds, rhonchi, tachypnea. ABSENT: rales, unlabored, wheezes Cardiovascular exam: PRESENT: RRR. ABSENT: diastolic murmur, rubs, systolic murmur Pulses: PRESENT: normal dorsalis pedis pul Vascular exam: PRESENT: normal capillary refill GI/Abdominal exam: PRESENT: normal bowel sounds, soft. ABSENT: distended, gu arding, mass, organolmegaly, rebound, tenderness Rectal exam: PRESENT: deferred Extremities exam: ABSENT: calf tenderness, clubbing, pedal edema Neurological exam: PRESENT: alert, awake, oriented to person, oriented to place, oriented to time, oriented to situation, CN II-XII grossly intact. ABSENT: motor sensory deficit Psychiatric exam: PRESENT: appropriate affect, normal mood. ABSENT: homicidal ideation, suicidal ideation Skin exam: PRESENT: dry, intact, warm. ABSENT: cyanosis, rash Results Laboratory Results: 05/28/20 05:20 05/28/20 05:20 05/28/20 05/28/20 05/28/20 05:20 05:20 06:45 WBC 5.5 RBC 4.21 L Hgb 14.6 Hct 41.5 MCV 99 H MCH 34.7 H MCHC 35.2 RDW 14.8 H Plt Count 92 L Seg Neutrophils % 79.7 H Carbonic Acid 1.16 HCO3/H2CO3 Ratio 19:1 ABG pH 7.40 ABG pCO2 38.4 ABG pO2 62.6 L ABG HCO3 23.1 ABG O2 Saturation 92.1 L ABG Base Excess -1.3 FiO2 10L Sodium 135.8 L Potassium 4.2 Chloride 108 H Carbon Dioxide 23 Anion Gap 5 BUN 11 Creatinine 0.55 Est GFR ( Amer) > 60 Glucose 132 H Calcium 7.4 L Total Bilirubin 1.6 H AST 257 H Alkaline Phosphatase 330 H Total Protein 6.7 Albumin 2.4 L 05/27/20 05/27/20 08:23 08:23 Creatine Kinase 165 CK-MB (CK-2) 1.07 Troponin I < 0.012 Impressions: Abdomen Ultrasound 05/27/20 09:16 IMPRESSION: No evidence of cholelithiasis or cholecystitis. Nonvisualization of the pancreas and abdominal aorta due to obscuration by intervening bowel gas. Otherwise unremarkable examination. Chest/Abdomen CTA 05/27/20 11:25 IMPRESSION: 1. No evidence for acute pulmonary emboli. 2. Extensive bilateral multifocal peripheral and parenchymal ground-glass opacities/consolidation and areas of consolidation in the lower lobes bilaterally. Commonly reported imaging features of COVID-19 pneumonia are p resent. 3. Mediastinal and right hilar lymphadenopathy. 3. Additional findings as above. Abdomen/Pelvis CT 05/27/20 11:26 IMPRESSION: 1. Hepatic steatosis. 2. Prominence of the gallbladder wall. No gallstones. 3. Small uncomplicated inguinal hernias. Chest X-Ray 05/28/20 06:00 IMPRESSION: No significant change. Assessment and Plan - Diagnosis (1) Acute respiratory failure due to COVID-19 Is this a current diagnosis for this admission?: Yes Plan: COVID test is pending however clinically patient seems to have an acute respiratory illness secondary to COVID (2) Transaminitis Is this a current diagnosis for this admission?: Yes Plan: Slightly improved we will continue to monitor (3) Bilateral pneumonia Is this a current diagnosis for this admission?: Yes Plan: CT scan suggest imaging features of COVID-19, mediastinal and right hilar lymphadenopathy. Follow-up chest x-ray today reveals no significant changes (4) Hypoxia Is this a current diagnosis for this admission?: Yes (5) Sepsis Is this a current diagnosis for this admission?: Yes Plan: Follow-up labs are improved - Plan Summary Summary: Patient presents to the hospital with acute respiratory failure. He was found to be hypoxic with oxygen saturation of 88%, tachypneic with his respiratory rate as high as 37 as well as a transaminitis and bilateral lung opacities consistent with COVID-19. Patient is septic secondary to COVID-19. He received cefepime in the emergency room however patient will be placed on Zithromax, dexamethasone, and supplements including zinc and vitamin D3. I did contact pharmacy for initiating from this vi but at this time he has not met the hospitals criteria which include a positive COVID test and so we will follow-up with this subsequently. Patient is also noted to have a transaminitis likely secondary to COVID - Time Time Spent with patient: 15-24 minutes Medications reviewed and adjusted accordingly: Yes Anticipated Discharge Disposition: Home, Self Care Anticipated Discharge Timeframe: within 72 hours
[2020-05-28] MEDS: ASPIRIN 81 MG TABLET, ENT COATED PO SCH (21:13)
[2020-05-29] MEDS: PANTOPRAZOLE SODIUM 40 MG TABLET.DR PO SCH (06:00)
[2020-05-29 06:31] LABS: ARTERIAL BLOOD BASE EXCESS -2.5 mmol/L; ARTERIAL BLOOD H2CO3 1.08 mmol/L (1.05-1.35); ARTERIAL BLOOD HCO3 21.6 mmol/L (20-24); ARTERIAL BLOOD O2 SATURATION 93.8 % (94-98); ARTERIAL BLOOD PCO2 35.8 mmHg (35-45); ARTERIAL BLOOD PO2 68.6 mmHg (80-100); ARTERIAL BLOOD TOTAL CO2 22.7 mmol/L (23-27)
[2020-05-29 06:32] LABS: ARTERIAL BLOOD FIO2 100%
--- NOTE | 2020-05-29 09:11 | PDOC PROGRESS REPORT ---
Subjective Progress Note for:: 05/29/20 Subjective:: 50 year old male 50-year-old patient presents to the ED with complaints of worsening shortness of breath, cough associated with blood which started about 3 days ago. Also complains of abdominal pain due to coughing. He works at a [employer] plant. Was tachypneic and hypoxic initially with a saturation of 88% which improved with supplemental oxygen CT scan of the chest shows extensive bilateral multifocal peripheral and parenchymal groundglass opacitiesconsolidation and areas of consolidation in the lower lobes bilaterally. Currently reported imaging features of COVID-19 pneumonia are present. There is also mediastinal and right hilar lymphadenopathy. Chest x-ray shows multilobar pneumonia. CT of the abdomen shows hepatic steatosis : 05/28/20 Subjective:: Patient's breathing remains pretty tenuous. He decompensates with attempts to decrease his oxygen. When I saw him this morning he was on 10 L oxygen with facemask. COVID-19 test is still pending 05/29/2020-patient is on 100% CPAP at this time. Desaturating without CPAP support. covid test came back positive. Discussed case with the pharmacist to start on remdesivir.. Patient is weaned to room #305. To continue IV dexamethasone 6 mg IV daily. Started on a treatment dose of Lovenox. CRP, ESR, d-dimer is pending at this time. Condition is critical. Started on IV Zosyn this morning. Patient is already on Zithromax. Reason For Visit: ATYPICAL PNEUMONIA, R/O COVID 19,ACUTE RESPIRATORY Physical Exam Vital Signs: Temp Pulse Resp BP Pulse Ox 96.9 F L 66 27 H 138/82 H 98 05/29/20 05:32 05/29/20 07:00 05/29/20 08:04 05/29/20 05:32 05/29/20 08:04 Intake & Output 05/28/20 05/29/20 05/30/20 06:59 06:59 06:59 Intake Total 1800 2710 Output Total 1400 2310 Balance 400 400 Weight 84.6 kg 84.9 kg General appearance: PRESENT: obese, other - In moderate distress. Head exam: PRESENT: atraumatic Eye exam: PRESENT: PERRLA Ear exam: PRESENT: normal external ear exam Mouth exam: PRESENT: neck supple Teeth exam: PRESENT: poor dentation Neck exam: ABSENT: carotid bruit, JVD, lymphadenopathy, thyromegaly Respiratory exam: PRESENT: decreased breath sounds Cardiovascular exam: PRESENT: tachycardia GI/Abdominal exam: PRESENT: normal bowel sounds, soft. ABSENT: distended, guarding, mass, organolmegaly, rebound, tenderness Rectal exam: PRESENT: deferred Extremities exam: PRESENT: full ROM. ABSENT: calf tenderness, clubbing, pedal edema Neurological exam: PRESENT: alert, awake, oriented to person, oriented to place, oriented to time, oriented to situation, CN II-XII grossly intact. ABSENT: motor sensory deficit Results Laboratory Results: 05/28/20 05:20 05/28/20 05:20 05/29/20 06:07 Carbonic Acid 1.08 HCO3/H2CO3 Ratio 20:1 ABG pH 7.40 ABG pCO2 35.8 ABG pO2 68.6 L ABG HCO3 21.6 ABG O2 Saturation 93.8 L ABG Base Excess -2.5 FiO2 100% 05/27/20 05/27/20 08:23 08:23 Creatine Kinase 165 CK-MB (CK-2) 1.07 Troponin I < 0.012 Impressions: Abdomen Ultrasound 05/27/20 09:16 IMPRESSION: No evidence of cholelithiasis or cholecystitis. Nonvisualization of the pancreas and abdominal aorta due to obscuration by intervening bowel gas. Otherwise unremarkable examination. Chest/Abdomen CTA 05/27/20 11:25 IMPRESSION: 1. No evidence for acute pulmonary emboli. 2. Extensive bilateral multifocal peripheral and parenchymal ground-glass opacities/consolidation and areas of consolidation in the lower lobes bilaterally. Commonly reported imaging features of COVID-19 pneumonia are present. 3. Mediastinal and right hilar lymphadenopathy. 3. Additional findings as above. Abdomen/Pelvis CT 05/27/20 11:26 IMPRESSION: 1. Hepatic steatosis. 2. Prominence of the gallbladder wall. No gallstones. 3. Small uncomplicated inguinal hernias. Chest X-Ray 05/28/20 06:00 IMPRESSION: No significant change. Assessment and Plan - Diagnosis (1) Acute respiratory failure due to COVID-19 Is this a current diagnosis for this admission?: Yes Plan: COVID test is pending however clinically patient seems to have an acute resp iratory illness secondary to COVID 05/29/2020-cover test is positive. To start the patient on remdesivir. Patient is already on IV dexamethasone. D-dimer, CRP, ESR is pending at this time. Started on a treatment dose of Lovenox. Added IV Zosyn to Zithromax. To continue CPAP with 100% oxygen. To repeat the ABG tomorrow morning. (2) Bilateral pneumonia Is this a current diagnosis for this admission?: Yes Plan: CT scan suggest imaging features of COVID-19, mediastinal and right hilar lymphadenopathy. Follow-up chest x-ray today reveals no significant changes 05/29/2020-patient admitted with bilateral pneumonia, CT scan indicate you have coronavirus pneumonia. On dexamethasone, Zithromax to start on remedies away to day. Covid test is positive. Patient works in a [employer]. (3) Hypoxia Is this a current diagnosis for this admission?: Yes Plan: 05/29/2020-patient admitted with acute hypoxic respiratory failure most likely secondary to COVID-19 pneumonia. On 100% FiO2 on CPAP. (4) Sepsis Is this a current diagnosis for this admission?: Yes Plan: Follow-up labs are improved 05/29/2020-patient came in with elevated WBC count, acute on respiratory failure, COVID pneumonia meeting the criteria for sepsis. (5) Transaminitis Is this a current diagnosis for this admission?: Yes Plan: Slightly improved we will continue to monitor 05/29/2020-LFTs are improving. Today's labs are pending at this time. - Plan Summary Summary: Patient presents to the hospital with acute respiratory failure. He was found to be hypoxic with oxygen saturation of 88%, tachypneic with his respiratory rate as high as 37 as well as a transaminitis and bilateral lung opacities consistent with COVID-19. Patient is septic secondary to COVID-19. He received cefepime in the emergency room however patient will be placed on Zithromax, dexamethasone, and supplements including zinc and vitamin D3. I did contact pharmacy for initiating from this vi but at this time he has not met the hospitals criteria which include a positive COVID test and so we will follow-up with this subsequently. Patient is also noted to have a transaminitis likely secondary to COVID - Time Anticipated Discharge Disposition: Home, Self Care Anticipated Discharge Timeframe: within 72 hours
[2020-05-29] MEDS: CHOLECALCIFEROL (D3) 1,000 UNIT (25 MCG) TABLET PO SCH (09:19)
[2020-05-29] MEDS: ZINC SULFATE 220 MG CAPSULE PO SCH (09:19)
[2020-05-29] MEDS: DEXAMETHASONE SOD PHOS INJ 10 MG/1 ML VIAL IV SCH (09:20)
[2020-05-29] MEDS ORDERED: ENOXAPARIN SODIUM INJ 80 MG/0.8 ML DISP.SYRIN SUBCUT SCH (10:00)
[2020-05-29] MEDS ORDERED: ENOXAPARIN SODIUM INJ 40 MG/0.4 ML DISP.SYRIN SUBCUT SCH (10:00)
[2020-05-29] MEDS ORDERED: REMDESIVIR (EUA) 200 MG in NORMAL SALINE 250 ML IV ONE (10:00)
[2020-05-29] MEDS: ENOXAPARIN SODIUM INJ 100 MG/1 ML DISP.SYRIN SUBCUT SCH ×2 (10:59→22:55)
[2020-05-29] MEDS: AZITHROMYCIN 500 MG in DEXTROSE 5%-WATER 250 ML IV SCH (11:06)
[2020-05-29] MEDS: NORMAL SALINE 1000 ML 1,000 ML IV PRN (11:52)
[2020-05-29 12:53] LABS: ABSOLUTE LYMPHOCYTES (AUTO) 0.8 10^3/uL (0.5-4.7); ABSOLUTE MONOCYTES (AUTO) 0.6 10^3/uL (0.1-1.4); ABSOLUTE NEUT (AUTO) 8.7 10^3/uL (1.7-8.2); BASOPHILS % (AUTO) 0.1 % (0-2); HEMATOCRIT 44.4 % (37.9-51.0); HEMOGLOBIN 15.5 g/dL (13.5-17.0); LYMPHOCYTES % (AUTO) 7.8 % (13-45); MEAN CORPUSCULAR HEMOGLOBIN 34.7 pg (27.0-33.4); MEAN CORPUSCULAR HGB CONC 34.9 g/dL (32.0-36.0); MEAN CORPUSCULAR VOLUME 100 fl (80-97); MONOCYTES % (AUTO) 6.1 % (3-13); PLATELET COUNT 145 10^3/uL (150-450); RED BLOOD COUNT 4.46 10^6/uL (4.35-5.55); RED CELL DISTRIBUTION WIDTH 15.1 % (11.5-14.0); TOTAL CELLS COUNTED % (AUTO) 100 %; WHITE BLOOD COUNT 10.1 10^3/uL (4.0-10.5)
[2020-05-29 13:17] LABS: ALBUMIN 2.6 g/dL (3.5-5.0); ALKALINE PHOSPHATASE 452 U/L (38-126); ANION GAP 8 (5-19); ASPARTATE AMINO TRANSFERASE 241 U/L (17-59); BILIRUBIN,TOTAL 1.6 mg/dL (0.2-1.3); BLOOD UREA NITROGEN 16 mg/dL (7-20); C-REACTIVE PROTEIN 64.7 mg/L (<10.0); CALCIUM 7.6 mg/dL (8.4-10.2); CARBON DIOXIDE 20 mmol/L (22-30); CHLORIDE 110 mmol/L (98-107); GLUCOSE 171 mg/dL (75-110); POTASSIUM 4.6 mmol/L (3.6-5.0); TOTAL PROTEIN 7.2 g/dL (6.3-8.2)
[2020-05-29] MEDS ORDERED: NORMAL SALINE 250 ML IV PRN ×2 (13:37)
[2020-05-29 13:38] LABS: ERYTHROCYTE SEDIMENTATION RATE 90 mm/hr (0-15)
[2020-05-29] MEDS ORDERED: PIPERACILLIN/TAZOBACTAM 3.375 GM VIAL IV SCH (14:00)
[2020-05-29] MEDS: PIPERACILLIN SODIUM/TAZOBACTAM 3.375 GM in NORMAL SALINE 100 ML IV SCH ×2 (14:55→22:55)
[2020-05-29] MEDS: ASPIRIN 81 MG TABLET, ENT COATED PO SCH (22:55)
[2020-05-30] MEDS: PANTOPRAZOLE SODIUM 40 MG TABLET.DR PO SCH (05:43)
[2020-05-30] MEDS: PIPERACILLIN SODIUM/TAZOBACTAM 3.375 GM in NORMAL SALINE 100 ML IV SCH ×3 (05:43→21:58)
[2020-05-30 07:09] LABS: ARTERIAL BLOOD BASE EXCESS 0 mmol/L; ARTERIAL BLOOD H2CO3 1.12 mmol/L (1.05-1.35); ARTERIAL BLOOD O2 SATURATION 92.2 % (94-98); ARTERIAL BLOOD PCO2 37.3 mmHg (35-45); ARTERIAL BLOOD PH 7.43 (7.35-7.45); ARTERIAL BLOOD PO2 61.4 mmHg (80-100); ARTERIAL BLOOD TOTAL CO2 25.1 mmol/L (23-27)
[2020-05-30 07:13] LABS: ARTERIAL BLOOD FIO2 100%
--- NOTE | 2020-05-30 08:20 | PDOC PROGRESS REPORT ---
Subjective Progress Note for:: 05/30/20 Subjective:: 50 year old male 50-year-old patient presents to the ED with complaints of worsening shortness of breath, cough associated with blood which started about 3 days ago. Also complains of abdominal pain due to coughing. He works at a [employer] plant. Was tachypneic and hypoxic initially with a saturation of 88% which improved with supplemental oxygen CT scan of the chest shows extensive bilateral multifocal peripheral and parenchymal groundglass opacitiesconsolidation and areas of consolidation in the lower lobes bilaterally. Currently reported imaging features of COVID-19 pneumonia are present. There is also mediastinal and right hilar lymphadenopathy. Chest x-ray shows multilobar pneumonia. CT of the abdomen shows hepatic steatosis : 05/28/20 Subjective:: Patient's breathing remains pretty tenuous. He decompensates with attempts to decrease his oxygen. When I saw him this morning he was on 10 L oxygen with facemask. COVID-19 test is still pending 05/29/2020-patient is on 100% CPAP at this time. Desaturating without CPAP support. covid test came back positive. Discussed case with the pharmacist to start on remdesivir.. Patient is weaned to room #305. To continue IV dexamethasone 6 mg IV daily. Started on a treatment dose of Lovenox. CRP, ESR, d-dimer is pending at this time. Condition is critical. Started on IV Zosyn this morning. Patient is already on Zithromax. 05/30/2020-no acute events in the last 24 hours. Afebrile. Patient is still on 15 L of oxygen pulse ox 100%. ABG was done this morning and 100% oxygen pH is 7.43/pco2 37/PO2 61/bicarb 24, oxygen saturation is 92%. Patient is receiving convulsant plasma, remidesevir, dexamethasone patient is on a treatment dose of Lovenox. Reason For Visit: ATYPICAL PNEUMONIA, R/O COVID 19,ACUTE RESPIRATORY Physical Exam Vital Signs: Temp Pulse Resp BP Pulse Ox 98.3 F 68 28 H 147/83 H 93 05/30/20 03:11 05/30/20 07:00 05/30/20 03:11 05/30/20 03:11 05/30/20 04:05 Intake & Output 05/29/20 05/30/20 05/31/20 06:59 06:59 06:59 Intake Total 6185 5091 Output Total 2310 2120 Balance 400 534 Weight 84.9 kg 84.5 kg General appearance: PRESENT: no acute distress, obese Head exam: PRESENT: atraumatic Eye exam: PRESENT: PERRLA Ear exam: PRESENT: normal external ear exam Mouth exam: PRESENT: neck supple Teeth exam: PRESENT: poor dentation Neck exam: ABSENT: carotid bruit, JVD, lymphadenopathy, thyromegaly Respiratory exam: PRESENT: decreased breath sounds Cardiovascular exam: PRESENT: RRR. ABSENT: diastolic murmur, rubs, systolic murmur GI/Abdominal exam: PRESENT: normal bowel sounds, soft. ABSENT: distended, guarding, mass, organolmegaly, rebound, tenderness Rectal exam: PRESENT: deferred Extremities exam: PRESENT: full ROM. ABSENT: calf tenderness, clubbing, pedal edema Neurological exam: PRESENT: alert, awake, oriented to person, oriented to place, oriented to time, oriented to situation, CN II-XII grossly intact. ABSENT: motor sensory deficit Psychiatric exam: PRESENT: appropriate affect, normal mood. ABSENT: homicidal ideation, suicidal ideation Results Laboratory Results: 05/29/20 12:07 05/29/20 12:07 05/29/20 05/29/20 05/29/20 12:07 12:07 14:40 WBC 10.1 RBC 4.46 Hgb 15.5 Hct 44.4 MCV 100 H MCH 34.7 H MCHC 34.9 RDW 15.1 H Plt Count 145 L Seg Neutrophils % 86.0 H Carbonic Acid HCO3/H2CO3 Ratio ABG pH ABG pCO2 ABG pO2 ABG HCO3 ABG O2 Saturation ABG Base Excess FiO2 Sodium 138.2 Potassium 4.6 Chloride 110 H Carbon Dioxide 20 L Anion Gap 8 BUN 16 Creatinine 0.56 Est GFR ( Amer) > 60 Glucose 171 H Calcium 7.6 L Magnesium 2.5 H Total Bilirubin 1.6 H AST 241 H Alkaline Phosphatase 452 H C-Reactive Protein 64.7 H Total Protein 7.2 Albumin 2.6 L Blood Type O POSITIVE 05/30/20 06:45 WBC RBC Hgb Hct MCV MCH MCHC RDW Plt Count Seg Neutrophils % Carbonic Acid 1.12 HCO3/H2CO3 Ratio 21:1 ABG pH 7.43 ABG pCO2 37.3 ABG pO2 61.4 L ABG HCO3 24.0 ABG O2 Saturation 92.2 L ABG Base Excess 0 FiO2 100% Sodium Potassium Chloride Carbon Dioxide Anion Gap BUN Creatinine Est GFR ( Amer) Glucose Calcium Magnesium Total Bilirubin AST Alkaline Phosphatase C-Reactive Protein Total Protein Albumin Blood Type 05/27/20 05/27/20 08:23 08:23 Creatine Kinase 165 CK-MB (CK-2) 1.07 Troponin I < 0.012 Impressions: Abdomen Ultrasound 05/27/20 09:16 IMPRESSION: No evidence of cholelithiasis or cholecystitis. Nonvisualization of the pancreas and abdominal aorta due to obscuration by intervening bowel gas. Otherwise unremarkable examination. Chest/Abdomen CTA 05/27/20 11:25 IMPRESSION: 1. No evidence for acute pulmonary emboli. 2. Extensive bilateral multifocal peripheral and parenchymal ground-glass opacities/consolidation and areas of consolidation in the lower lobes bilaterally. Commonly reported imaging features of COVID-19 pneumonia are present. 3. Mediastinal and right hilar lymphadenopathy. 3. Additional findings as above. Abdomen/Pelvis CT 05/27/20 11:26 IMPRESSION: 1. Hepatic steatosis. 2. Prominence of the gallbladder wall. No gallstones. 3. Small uncomplicated inguinal hernias. Chest X-Ray 05/28/20 06:00 IMPRESSION: No significant change. Assessment and Plan - Diagnosis (1) Acute respiratory failure due to COVID-19 Is this a current diagnosis for this admission?: Yes Plan: COVID test is pending however clinically patient seems to have an acute respiratory illness secondary to COVID 05/29/2020-covid test is positive. To start the patient on remdesivir. Patient is already on IV dexamethasone. D-dimer, CRP, ESR is pending at this time. Started on a treatment dose of Lovenox. Added IV Zosyn to Zithromax. To continue CPAP with 100% oxygen. To repeat the ABG tomorrow morning. 05/30/20-patient is receiving convulsant plasma, IV dexamethasone 60 mg daily, IV Zithromax, IV Zosyn, full dose of Lovenox, remedesivir. Patient is comfortably in the bed denies any problems. Is on CPAP 100%. Plan is to continue the present management and to repeat the labs including ABG tomorrow morning. (2) Bilateral pneumonia Is this a current diagnosis for this admission?: Yes Plan: CT scan suggest imaging features of COVID-19, mediastinal and right hilar lymphadenopathy. Follow-up chest x-ray today reveals no significant changes 05/29/2020-patient admitted with bilateral pneumonia, CT scan indicate you have coronavirus pneumonia. On dexamethasone, Zithromax to start on remedies away today. Covid test is positive. Patient works in a [employer]. 05/30/2020-patient is receiving IV Zosyn, IV Zithromax at this time. Blood cultures are negative. COVID test positive. (3) Hypoxia Is this a current diagnosis for this admission?: Yes Plan: 05/29/2020-patient admitted with acute hypoxic respiratory failure most likely secondary to COVID-19 pneumonia. On 100% FiO2 on CPAP. 05/30/2020-ABG was done 100% oxygen pH is 1.43/PCO2 37/PO2 62/bicarb is 24/oxygen saturation is 92%. Plan is to continue CPAP and a repeat the labs tomorrow. (4) Sepsis Is this a current diagnosis for this admission?: Yes Plan: Follow-up labs are improved 05/29/2020-patient came in with elevated WBC count, acute on respiratory failure, COVID pneumonia meeting the criteria for sepsis. (5) Transaminitis Is this a current diagnosis for this admission?: Yes Plan: Slightly improved we will continue to monitor 05/29/2020-LFTs are improving. Today's labs are pending at this time. (6) Obesity (BMI 30.0-34.9) Is this a current diagnosis for this admission?: No Plan: 05/30/2020-BMI is more than 34. Diet exercise weight loss lifestyle modifications discussed with the patient. - Plan Summary Summary: Patient presents to the hospital with acute respiratory failure. He was found to be hypoxic with oxygen saturation of 88%, tachypneic with his respiratory rate as high as 37 as well as a transaminitis and bilateral lung opacities consistent with COVID-19. Patient is septic secondary to COVID-19. He received cefepime in the emergency room however patient will be placed on Zithromax, dexamethasone, and supplements including zinc and vitamin D3. I did contact pharmacy for initiating from this vi but at this time he has not met the hospitals criteria which include a positive COVID test and so we will follow-up with this subsequently. Patient is also noted to have a transaminitis likely secondary to COVID - Time Anticipated Discharge Disposition: Home, Self Care Anticipated Discharge Timeframe: within 72 hours
[2020-05-30 09:27] LABS: HEMATOCRIT 43.1 % (37.9-51.0); HEMOGLOBIN 15.1 g/dL (13.5-17.0); MEAN CORPUSCULAR HEMOGLOBIN 34.8 pg (27.0-33.4); MEAN CORPUSCULAR VOLUME 99 fl (80-97); PLATELET COUNT 144 10^3/uL (150-450); RED BLOOD COUNT 4.34 10^6/uL (4.35-5.55); RED CELL DISTRIBUTION WIDTH 14.6 % (11.5-14.0); WHITE BLOOD COUNT 9.2 10^3/uL (4.0-10.5)
[2020-05-30 09:44] LABS: ALBUMIN 2.6 g/dL (3.5-5.0); ALKALINE PHOSPHATASE 435 U/L (38-126); ANION GAP 8 (5-19); ASPARTATE AMINO TRANSFERASE 200 U/L (17-59); BILIRUBIN,DIRECT 0.9 mg/dL (0.0-0.4); BILIRUBIN,TOTAL 1.7 mg/dL (0.2-1.3); BLOOD UREA NITROGEN 16 mg/dL (7-20); CALCIUM 7.5 mg/dL (8.4-10.2); CARBON DIOXIDE 23 mmol/L (22-30); CHLORIDE 108 mmol/L (98-107); GLUCOSE 117 mg/dL (75-110); POTASSIUM 4.5 mmol/L (3.6-5.0)
[2020-05-30] MEDS: DEXAMETHASONE SOD PHOS INJ 10 MG/1 ML VIAL IV SCH (10:00)
[2020-05-30] MEDS: CHOLECALCIFEROL (D3) 1,000 UNIT (25 MCG) TABLET PO SCH (10:00)
[2020-05-30] MEDS: AZITHROMYCIN 500 MG in DEXTROSE 5%-WATER 250 ML IV SCH (10:00)
[2020-05-30] MEDS: NORMAL SALINE 1000 ML 1,000 ML IV PRN (10:00)
[2020-05-30] MEDS: ZINC SULFATE 220 MG CAPSULE PO SCH (10:00)
[2020-05-30] MEDS: ENOXAPARIN SODIUM INJ 100 MG/1 ML DISP.SYRIN SUBCUT SCH ×2 (10:01→21:57)
[2020-05-30 10:21] LABS: ABSOLUTE LYMPHOCYTES# (MANUAL) 0.5 10^3/uL (0.5-4.7); ABSOLUTE MONOCYTES # (MANUAL) 0.4 10^3/uL (0.1-1.4); ANISOCYTOSIS SLIGHT; BAND NEUTROPHILS % (MANUAL) 3 % (3-5); BASOPHILS % (MANUAL) 0 % (0-2); EOSINOPHILS % (MANUAL) 0 % (0-6); LYMPHOCYTES % (MANUAL) 5 % (13-45); MONOCYTES % (MANUAL) 4 % (3-13); PLATELET COMMENT DECREASED; SEGMENTED NEUTROPHILS % (MAN) 88 % (42-78); TOTAL CELLS COUNTED 100
[2020-05-30] MEDS: REMDESIVIR (EUA) 100 MG in NORMAL SALINE 250 ML IV SCH (10:59)
[2020-05-30] MEDS: ASPIRIN 81 MG TABLET, ENT COATED PO SCH (21:57)
[2020-05-31] MEDS: PANTOPRAZOLE SODIUM 40 MG TABLET.DR PO SCH (05:07)
[2020-05-31] MEDS: PIPERACILLIN SODIUM/TAZOBACTAM 3.375 GM in NORMAL SALINE 100 ML IV SCH ×3 (05:07→21:54)
[2020-05-31 05:29] LABS: ABSOLUTE MONOCYTES (AUTO) 0.3 10^3/uL (0.1-1.4); ABSOLUTE NEUT (AUTO) 9.5 10^3/uL (1.7-8.2); BASOPHILS % (AUTO) 0.1 % (0-2); HEMATOCRIT 43.4 % (37.9-51.0); HEMOGLOBIN 15.2 g/dL (13.5-17.0); LYMPHOCYTES % (AUTO) 8.9 % (13-45); MEAN CORPUSCULAR HEMOGLOBIN 34.6 pg (27.0-33.4); MEAN CORPUSCULAR HGB CONC 35.1 g/dL (32.0-36.0); MEAN CORPUSCULAR VOLUME 99 fl (80-97); MONOCYTES % (AUTO) 2.6 % (3-13); PLATELET COUNT 156 10^3/uL (150-450); RED BLOOD COUNT 4.39 10^6/uL (4.35-5.55); RED CELL DISTRIBUTION WIDTH 14.6 % (11.5-14.0); SEGMENTED NEUTROPHILS % (AUTO) 88.4 % (42-78); TOTAL CELLS COUNTED % (AUTO) 100 %; WHITE BLOOD COUNT 10.8 10^3/uL (4.0-10.5)
[2020-05-31 05:54] LABS: ALBUMIN 2.6 g/dL (3.5-5.0); ALKALINE PHOSPHATASE 392 U/L (38-126); ANION GAP 8 (5-19); ASPARTATE AMINO TRANSFERASE 174 U/L (17-59); BILIRUBIN,DIRECT 1.1 mg/dL (0.0-0.4); BILIRUBIN,TOTAL 1.9 mg/dL (0.2-1.3); BLOOD UREA NITROGEN 16 mg/dL (7-20); C-REACTIVE PROTEIN 82.4 mg/L (<10.0); CALCIUM 7.7 mg/dL (8.4-10.2); CARBON DIOXIDE 22 mmol/L (22-30); CHLORIDE 107 mmol/L (98-107); GLUCOSE 124 mg/dL (75-110); POTASSIUM 4.4 mmol/L (3.6-5.0); TOTAL PROTEIN 6.9 g/dL (6.3-8.2)
[2020-05-31 06:20] LABS: ERYTHROCYTE SEDIMENTATION RATE 90 mm/hr (0-15)
[2020-05-31 06:22] LABS: ARTERIAL BLOOD BASE EXCESS -2.8 mmol/L; ARTERIAL BLOOD H2CO3 1.06 mmol/L (1.05-1.35); ARTERIAL BLOOD HCO3 21.3 mmol/L (20-24); ARTERIAL BLOOD O2 SATURATION 94.2 % (94-98); ARTERIAL BLOOD PCO2 35.1 mmHg (35-45); ARTERIAL BLOOD TOTAL CO2 22.3 mmol/L (23-27)
[2020-05-31 06:23] LABS: ARTERIAL BLOOD FIO2 95%
[2020-05-31] MEDS: DEXAMETHASONE SOD PHOS INJ 10 MG/1 ML VIAL IV SCH (09:56)
[2020-05-31] MEDS: ENOXAPARIN SODIUM INJ 100 MG/1 ML DISP.SYRIN SUBCUT SCH ×2 (09:57→21:54)
[2020-05-31] MEDS: REMDESIVIR (EUA) 100 MG in NORMAL SALINE 250 ML IV SCH (09:57)
[2020-05-31] MEDS: ZINC SULFATE 220 MG CAPSULE PO SCH (09:58)
[2020-05-31] MEDS: CHOLECALCIFEROL (D3) 1,000 UNIT (25 MCG) TABLET PO SCH (09:58)
[2020-05-31] MEDS: AZITHROMYCIN 500 MG in DEXTROSE 5%-WATER 250 ML IV SCH (09:58)
--- NOTE | 2020-05-31 14:02 | RADIOLOGY REPORT (SQ) ---
EXAM DESCRIPTION: CHEST SINGLE VIEW IMAGES COMPLETED DATE/TIME: 05/31/2020 1:13 pm REASON FOR STUDY: Change in Respiratory Status COMPARISON: 05/28/2020 EXAM PARAMETERS: NUMBER OF VIEWS: One view. TECHNIQUE: Single frontal radiographic view of the chest acquired. RADIATION DOSE: NA LIMITATIONS: None. FINDINGS: LUNGS AND PLEURA: There is significantly improved aeration in both lungs with perhaps mild residual infiltrates. MEDIASTINUM AND HILAR STRUCTURES: No mediastinal or hilar adenopathy or masses. HEART AND VASCULAR STRUCTURES: Heart normal in size. Normal vasculature. BONES: No acute findings. HARDWARE: None in the chest. OTHER: No other significant finding. IMPRESSION: Significant improvement in the appearance of the chest with what appears to be mild resi dual airspace disease. TECHNICAL DOCUMENTATION: JOB ID: [id number] 2010 [employer]- All Rights Reserved Reading location - IP/workstation name: [email or web address]
[2020-05-31] MEDS ORDERED: MORPHINE SULFATE 10 MG/ML INJ IV PRN (14:25)
--- NOTE | 2020-05-31 17:39 | PDOC PROGRESS REPORT ---
Subjective Progress Note for:: 05/31/20 Subjective:: Per previous physician: "50-year-old patient presents to the ED with complaints of worsening shortness of breath, cough associated with blood which started about 3 days ago. Also complains of abdominal pain due to coughing. He works at a [employer] plant. Was tachypneic and hypoxic initially with a saturation of 88% which improved with supplemental oxygen CT scan of the chest shows extensive bilateral multifocal peripheral and parenchymal groundglass opacitiesconsolidation and areas of consolidation in the lower lobes bilaterally. Currently reported imaging features of COVID-19 pneumonia are present. There is also mediastinal and right hilar lymphadenopathy. Chest x-ray shows multilobar pneumonia. CT of the abdomen shows hepatic steatosis 05/29/2020-patient is on 100% CPAP at this time. Desaturating without CPAP support. covid test came back positive. Discussed case with the pharmacist to start on remdesivir.. Patient is weaned to room #305. To continue IV dexamethasone 6 mg IV daily. Started on a treatment dose of Lovenox. CRP, ESR, d-dimer is pending at this time. Condition is critical. Started on IV Zosyn this morning. Patient is already on Zithromax. 05/30/2020-no acute events in the last 24 hours. Afebrile. Patient is still on 15 L of oxygen pulse ox 100%. ABG was done this morning and 100% oxygen pH is 7.43/pco2 37/PO2 61/bicarb 24, oxygen saturation is 92%. Patient is receiving convulsant plasma, remidesevir, dexamethasone patient is on a treatment dose of Lovenox." 05/31/2020 Patient is still being maintained on 100% FiO2 on CPAP, essentially the maximum limits of noninvasive ventilatory support. If patient decompensates further, he will need to be intubated and sent to the ICU. This was discussed with nursing and with the patient as well. His chest x-ray did show significant improvement but clinically is not significantly improved and desaturates easily. Bilirubin and CRP are higher as well as higher d-dimer and ferritin. He is maintained on remdesivir, dexamethasone, treatment dose Lovenox, and antibiotics. He has no new complaints today. Reason For Visit: ATYPICAL PNEUMONIA, R/O COVID 19,ACUTE RESPIRATORY Physical Exam Vital Signs: Temp Pulse Resp BP Pulse Ox 98.7 F 72 32 H 153/80 H 94 05/31/20 07:47 05/31/20 14:00 05/31/20 16:40 05/31/20 04:24 05/31/20 16:40 Intake & Output 05/30/20 05/31/20 06/01/20 06:59 06:59 06:59 Intake Total 2654 1160 350 Output Total 2129 0605 Balance 534 -1365 350 Weight 84.5 kg 84.9 kg General appearance: PRESENT: no acute distress, well-developed, well-nourished Head exam: PRESENT: atraumatic, normocephalic Eye exam: PRESENT: conjunctiva pink Mouth exam: PRESENT: moist Respiratory exam: PRESENT: decreased breath sounds - Notably decreased breath sounds bilaterally. ABSENT: rales, rhonchi, wheezes Cardiovascular exam: PRESENT: RRR. ABSENT: diastolic murmur, rubs, systolic murmur GI/Abdominal exam: PRESENT: normal bowel sounds, soft. ABSENT: distended, guarding, mass, organolmegaly, rebound, tenderness Neurological exam: PRESENT: alert, awake, oriented to person, oriented to place, oriented to time, oriented to situation Psychiatric exam: PRESENT: appropriate affect, normal mood Skin exam: PRESENT: dry, intact, warm Results Laboratory Results: 05/31/20 04:42 05/31/20 04:42 05/31/20 05/31/20 05/31/20 04:42 04:42 05:45 WBC 10.8 H RBC 4.39 Hgb 15.2 Hct 43.4 MCV 99 H MCH 34.6 H MCHC 35.1 RDW 14.6 H Plt Count 156 Seg Neutrophils % 88.4 H Carbonic Acid 1.06 HCO3/H2CO3 Ratio 20:1 ABG pH 7.40 ABG pCO2 35.1 ABG pO2 70.0 L ABG HCO3 21.3 ABG O2 Saturation 94.2 ABG Base Excess -2.8 FiO2 95% Sodium 137.3 Potassium 4.4 Chloride 107 Carbon Dioxide 22 Anion Gap 8 BUN 16 Creatinine 0.52 Est GFR ( Amer) > 60 Glucose 124 H Calcium 7.7 L Magnesium 2.5 H Ferritin 1130.00 H Total Bilirubin 1.9 H AST 174 H Alkaline Phosphatase 392 H C-Reactive Protein 82.4 H Total Protein 6.9 Albumin 2.6 L 05/27/20 05/27/20 08:23 08:23 Creatine Kinase 165 CK-MB (CK-2) 1.07 Troponin I < 0.012 Impressions: Abdomen Ultrasound 05/27/20 09:16 IMPRESSION: No evidence of cholelithiasis or cholecystitis. Nonvisualization of the pancreas and abdominal aorta due to obscuration by intervening bowel gas. Otherwise unremarkable examination. Chest/Abdomen CTA 05/27/20 11:25 IMPRESSION: 1. No evidence for acute pulmonary emboli. 2. Extensive bilateral multifocal peripheral and parenchymal ground-glass opacities/consolidation and areas of consolidation in the lower lobes bilaterally. Commonly reported imaging features of COVID-19 pneumonia are present. 3. Mediastinal and right hilar lymphadenopathy. 3. Additional findings as above. Abdomen/Pelvis CT 05/27/20 11:26 IMPRESSION: 1. Hepatic steatosis. 2. Prominence of the gallbladder wall. No gallstones. 3. Small uncomplicated inguinal hernias. Chest X-Ray 05/31/20 00:00 IMPRESSION: Significant improvement in the appearance of the chest with what appears to be mild residual airspace disease. Assessment and Plan - Diagnosis (1) Acute respiratory failure due to COVID-19 Is this a current diagnosis for this admission?: Yes Plan: Per previous physician: "COVID test is pending however clinically patient seems to have an acute respiratory illness secondary to COVID 05/29/2020-covid test is positive. To start the patient on remdesivir. Patient is already on IV dexamethasone. D-dimer, CRP, ESR is pending at this time. Started on a treatment dose of Lovenox. Added IV Zosyn to Zithromax. To leah nue CPAP with 100% oxygen. To repeat the ABG tomorrow morning 05/30/20-patient is receiving convulsant plasma, IV dexamethasone 60 mg daily, IV Zithromax, IV Zosyn, full dose of Lovenox, remedesivir. Patient is comfortably in the bed denies any problems. Is on CPAP 100%. Plan is to continue the p resent management and to repeat the labs including ABG tomorrow morning." 05/31/2020 Continued on dexamethasone, treatment dose Lovenox All cultures have been negative and there does not appear to be a bacterial component to his pneumonia, stop antibiotics as they recommended against in the setting of obvious COVID pneumonia without bacterial component Stop Remdesivir due to rising alk phos and bilirubin in the setting of elevated LFTs per the transformation coach recommendations for experimental use in the setting of COVID-19 pneumonia Continues to be maxed out on 100% FiO2 on CPAP, next up is intubation if he further decompensates (2) Bilateral pneumonia Qualifiers: Pneumonia type: due to unspecified organism Is this a current diagnosis for this admission?: Yes Plan: Per previous physician: "CT scan suggest imaging features of COVID-19, mediastinal and right hilar lymphadenopathy. Follow-up chest x-ray today reveals no significant changes 05/29/2020-patient admitted with bilateral pneumonia, CT scan indicate you have coronavirus pneumonia. On dexamethasone, Zithromax to start on remedies away today. Covid test is positive. Patient works in a [employer]. 05/30/2020-patient is receiving IV Zosyn, IV Zithromax at this time. Blood cultures are negative. COVID test positive." Stopped all antibiotics as cultures are negative and he clearly has COVID-19 pneumonia (3) Hypoxia Is this a current diagnosis for this admission?: Yes Plan: Per previous physician: "05/29/2020-patient admitted with acute hypoxic respiratory failure most likely secondary to COVID-19 pneumonia. On 100% FiO2 on CPAP. 05/30/2020-ABG was done 100% oxygen pH is 1.43/PCO2 37/PO2 62/bicarb is 24/oxygen saturation is 92%. Plan is to continue CPAP and a repeat the labs tomorrow." 05/31/2022 ABG seems to be a bit improved with higher pO2 Repeat chest x-ray is improved as well Clinically patient seems to be just is better worse than he has been previously (4) Obesity (BMI 30.0-34.9) Is this a current diagnosis for this admission?: No (5) Sepsis Qualifiers: Sepsis type: sepsis due to unspecified organism Is this a current diagnosis for this admission?: Yes Plan: Due to viral pneumonia and cytokine storm from COVID-19 (6) Suspected COVID-19 virus infection Is this a current diagnosis for this admission?: Yes (7) Transaminitis Is this a current diagnosis for this admission?: Yes Plan: 05/31/2020 Possibly due to Remdesivir, discontinued per transformation coach's recommendations Get portal vein PVL to rule out thrombosis - Plan Summary Summary: Patient presents to the hospital with acute respiratory failure. He was found to be hypoxic with oxygen saturation of 88%, tachypneic with his respiratory rate as high as 37 as well as a transaminitis and bilateral lung opacities consistent with COVID-19. Patient is septic secondary to COVID-19. He received cefepime in the emergency room however patient will be placed on Zithromax, dex amethasone, and supplements including zinc and vitamin D3. I did contact pharmacy for initiating from this vi but at this time he has not met the hospitals criteria which include a positive COVID test and so we will follow-up with this subsequently. Patient is also noted to have a transaminitis likely secondary to COVID - Time Time Spent with patient: 35 or more minutes Medications reviewed and adjusted accordingly: Yes Anticipated Discharge Disposition: [facility] Facility Anticipated Discharge Timeframe: within 72 hours - Inpatient Certification Based on my medical assessment, after consideration of the patient's comorbidities, presenting symptoms, or acuity I expect that the services needed warrant INPATIENT care.: Yes I certify that my determination is in accordance with my understanding of Medicare's requirements for reasonable and necessary INPATIENT services [42 CFR 412.3e].: Yes Medical Necessity: Significant Comorbidiites Make Outpatient Treatment Too Risky, Need Close Monitoring Due to Risk of Patient Decompensation, Risk of Complication if Not Cared For in Hospital, Risk of Diagnosis Which Will Require Inpatient Eval/Care/Monitoring
[2020-05-31] MEDS: NORMAL SALINE 1000 ML 1,000 ML IV PRN (20:35)
[2020-05-31] MEDS: ASPIRIN 81 MG TABLET, ENT COATED PO SCH (21:54)
[2020-06-01] MEDS: PIPERACILLIN SODIUM/TAZOBACTAM 3.375 GM in NORMAL SALINE 100 ML IV SCH ×2 (05:11→14:36)
[2020-06-01] MEDS: PANTOPRAZOLE SODIUM 40 MG TABLET.DR PO SCH (05:12)
[2020-06-01 07:15] LABS: ARTERIAL BLOOD BASE EXCESS 0 mmol/L; ARTERIAL BLOOD H2CO3 1.01 mmol/L (1.05-1.35); ARTERIAL BLOOD HCO3 23.2 mmol/L (20-24); ARTERIAL BLOOD O2 SATURATION 87.5 % (94-98); ARTERIAL BLOOD PCO2 33.7 mmHg (35-45); ARTERIAL BLOOD PH 7.46 (7.35-7.45); ARTERIAL BLOOD PO2 49.9 mmHg (80-100); ARTERIAL BLOOD TOTAL CO2 24.2 mmol/L (23-27)
[2020-06-01 07:16] LABS: ARTERIAL BLOOD FIO2 100%
[2020-06-01] MEDS: ZINC SULFATE 220 MG CAPSULE PO SCH (09:16)
[2020-06-01] MEDS: CHOLECALCIFEROL (D3) 1,000 UNIT (25 MCG) TABLET PO SCH (09:16)
[2020-06-01] MEDS: AZITHROMYCIN 500 MG in DEXTROSE 5%-WATER 250 ML IV SCH (09:19)
[2020-06-01] MEDS: DEXAMETHASONE SOD PHOS INJ 10 MG/1 ML VIAL IV SCH (09:20)
[2020-06-01] MEDS: ENOXAPARIN SODIUM INJ 100 MG/1 ML DISP.SYRIN SUBCUT SCH (09:23)
[2020-06-01] MEDS ORDERED: ONDANSETRON HCL INJ/PF 4 MG/2 ML SDV IV PRN (10:41)
[2020-06-01] MEDS ORDERED: ACETAMINOPHEN 325 MG TABLET NG PRN (10:41)
[2020-06-01] MEDS ORDERED: PHARMACY COMMUNICATION ORDER MC NR (10:45)
[2020-06-01] MEDS ORDERED: NORMAL SALINE 1000 ML 1,000 ML IV PRN (10:49)
[2020-06-01] MEDS ORDERED: PROPOFOL 1,000 MG/100 ML INFUS..BTL IV ONE (10:52)
[2020-06-01] MEDS ORDERED: PROPOFOL INJ 200 MG/20 ML VIAL IV ONE (10:56)
[2020-06-01] MEDS: PROPOFOL 1,000 MG/100 ML INFUS..BTL IV PRN ×3 (11:00→18:05)
--- NOTE | 2020-06-01 11:00 | CRITICAL CARE ADMISSION REPORT ---
HPI Date:: 06/01/20 Time:: 09:00 Reason for ICU Reason:: Needs intubation for covid PNA Admission Date/Time & PCP: Admission Date/Time: 05/27/20 14:17 Primary Care Provider: HPI: This patient is a 50 yo man who was recently diagnosed with a COVID PNA. He has been maintained on the COVID floor with worsening oxygenation. He states his breathing is fine. However he is on 100% oxygen on bipap with an O2 saturation in the high 80s. And a PO2 of 49 by ABG. He is tachypneic and appears not to be tiring out although he is at high risk for decompensation and emergant intubation. Just before transfer to the ICU he became anxious, more tachypnic and dropped his oxygenation to the 80s. He was emergently intubated by anesthesia easily with BS-BL. Transferred directly to the ICU bed 5. History obtained from:: Patient, Dr Moreira, records. - Diagnosis/Plan (1) Acute respiratory failure due to COVID-19 Is this a current diagnosis for this admission?: Yes Plan: This was a hypoxic failure and required intubation. He will remain intubated until more stable. (2) Hypoxia Is this a current diagnosis for this admission?: Yes Plan: We are starting him on 100% O2 and hope to titrate down. (3) Obesity (BMI 30.0-34.9) Is this a current diagnosis for this admission?: Yes Plan: This is an independant risk factor for complications. Plan Summary: Keep intubated, start TF and wean as tolerated. Past Medical History Cardiac Medical History: Denies: Myocardial Infarction, Hypertension Pulmonary Medical History: Denies: Asthma Neurological Medical History: Denies: Seizures GI Medical History: Denies: Hepatitis, Hiatal Hernia Psychiatric Medical History: Denies: Depression Hematology: Denies: Anemia, Sickle Cell Disease Past Surgical History Past Surgical History: Denies: Pacemaker Social/Family History - Social History Smoking Status: Never Smoker Frequency of Alcohol Use: None Hx Recreational Drug Use: No Drugs: None Hx Prescription Drug Abuse: No - Medication/Allergies Home Medications: No Home Medications 05/29/20 Allergies/Adverse Reactions: No Known Allergies Allergy (Verified 06/20/17 06:50) Review of Systems ROS unobtainable: Due to endotracheal tube Physical Exam Vital Signs: Temp Pulse Resp BP Pulse Ox 98.9 F 100 35 H 149/78 H 87 L 06/01/20 09:07 06/01/20 08:00 06/01/20 08:49 06/01/20 08:00 06/01/20 08:49 Intake & Output 05/31/20 06/01/20 06/02/20 06:59 06:59 06:59 Intake Total 1160 1810 200 Output Total 2525 2655 Balance -1365 -845 200 Weight 84.9 kg 82.9 kg Weight/Height Weight 82.9 kg Height 5 ft 2 in General appearance: PRESENT: obese, severe distress Head exam: PRESENT: atraumatic, normocephalic Eye exam: PRESENT: conjunctiva pink, EOMI, PERRLA. ABSENT: scleral icterus Ear exam: PRESENT: normal external ear exam Mouth exam: PRESENT: moist, tongue midline Respiratory exam: PRESENT: accessory muscle use, clear to auscultation mayela, d ecreased breath sounds, tachypnea. ABSENT: rales, rhonchi, wheezes Cardiovascular exam: PRESENT: tachycardia GI/Abdominal exam: PRESENT: normal bowel sounds, soft. ABSENT: distended, guarding, mass, organolmegaly, rebound, tenderness Rectal exam: PRESENT: deferred Gentrourinary exam: PRESENT: indwelling catheter Extremities exam: PRESENT: full ROM. ABSENT: calf tenderness, clubbing, pedal edema Musculoskeletal exam: PRESENT: normal inspection Neurological exam: PRESENT: alert, awake, oriented to person, oriented to place, oriented to time, oriented to situation, CN II-XII grossly intact. ABSENT: motor sensory deficit Psychiatric exam: PRESENT: anxious, appropriate affect, normal mood. ABSENT: homicidal ideation, suicidal ideation Skin exam: PRESENT: dry, intact, warm. ABSENT: cyanosis, rash Tubes/Lines: PRESENT: Endotracheal Tube, Nasogastic Tube Laboratory/Radiographs Laboratory Results: 05/31/20 04:42 05/31/20 04:42 06/01/20 06:59 Carbonic Acid 1.01 L HCO3/H2CO3 Ratio 22:1 ABG pH 7.46 H ABG pCO2 33.7 L ABG pO2 49.9 L ABG HCO3 23.2 ABG O2 Saturation 87.5 L ABG Base Excess 0 FiO2 100% 05/27/20 08:23 Blood Blood Culture - Final NO GROWTH IN 5 DAYS 05/27/20 05/27/20 08:23 08:23 Creatine Kinase 165 CK-MB (CK-2) 1.07 Troponin I < 0.012 Impressions: Abdomen Ultrasound 05/27/20 09:16 IMPRESSION: No evidence of cholelithiasis or cholecystitis. Nonvisualization of the pancreas and abdominal aorta due to obscuration by intervening bowel gas. Otherwise unremarkable examination. Chest/Abdomen CTA 05/27/20 11:25 IMPRESSION: 1. No evidence for acute pulmonary emboli. 2. Extensive bilateral multifocal peripheral and parenchymal ground-glass opacities/consolidation and areas of consolidation in the lower lobes bilaterally. Commonly reported imaging features of COVID-19 pneumonia are present. 3. Mediastinal and right hilar lymphadenopathy. 3. Additional findings as above. Abdomen/Pelvis CT 05/27/20 11:26 IMPRESSION: 1. Hepatic steatosis. 2. Prominence of the gallbladder wall. No gallstones. 3. Small uncomplicated inguinal hernias. Chest X-Ray 05/31/20 00:00 IMPRESSION: Significant improvement in the appearance of the chest with what appears to be mild residual airspace disease. All labs, radiographs, diagnostic studies and EKGs were personally reviewed: Yes In addition, reports of radiographic and diagnostic studies were read: Yes Critical Time Critical Time (minutes): 40 -: The care of a critically ill patient is dynamic. This note represents a static moment in the admission process. Orders and treatments may be given simultaneously and urgently, and time is not employee's representative of the treatment process. This patient requires Critical Care secondary to life threatening organ or limb dysfunction. Without Critical Care services, the patient is at risk for increased mortality and morbidity.
[2020-06-01] MEDS: HYDROMORPHONE HCL INJ/PF 2 MG/ML AMPULE IV PRN ×2 (11:10→17:24)
[2020-06-01] MEDS ORDERED: VECURONIUM BROMIDE INJ 10 MG VIAL IV ONE ×2 (11:31→11:34)
--- NOTE | 2020-06-01 11:51 | RADIOLOGY REPORT (SQ) ---
EXAM DESCRIPTION: CHEST SINGLE VIEW IMAGES COMPLETED DATE/TIME: 06/01/2020 11:27 am REASON FOR STUDY: ET Tube Placement COMPARISON: 05/31/2020 EXAM PARAMETERS: NUMBER OF VIEWS: One view. TECHNIQUE: Single frontal radiographic view of the chest acquired. RADIATION DOSE: NA LIMITATIONS: None. FINDINGS: LUNGS AND PLEURA: Increasing bilateral alveolar airspace disease. Endotracheal tube is be en placed. The tip is in the proximal right mainstem bronchus and should be withdrawn approximately 2.5 cm. MEDIASTINUM AND HILAR STRUCTURES: No masses. Contour normal. HEART AND VASCULAR STRUCTURES: Grossly stable allowing for differences in technique. BONES: No acute findings. HARDWARE: None in the chest. OTHER: No other significant finding. IMPRESSION: Increasing bilateral alveolar airspace disease. Endotracheal tube is in the proximal right mainstem bronchus and should be withdrawn 2.5 cm. COMMENT: This report was called to the ICU at11:42 on 06/01/2020. The tube had been repositioned. TECHNICAL DOCUMENTATION: JOB ID: [id number] 2010 [employer]- All Rights Reserved Reading location - IP/workstation name: [email or web address]
--- NOTE | 2020-06-01 12:43 | PDOC PROGRESS REPORT ---
Subjective Subjective:: Per previous physician: "50-year-old patient presents to the ED with complaints of worsening shortness of breath, cough associated with blood which started about 3 days ago. Also complains of abdominal pain due to coughing. He works at a [employer]. Was tachypneic and hypoxic initially with a saturation of 88% which improved with supplemental oxygen CT scan of the chest shows extensive bilateral multifocal peripheral and parenchymal groundglass opacitiesconsolidation and areas of consolidation in the lower lobes bilaterally. Currently reported imaging features of COVID-19 pneumonia are present. There is also mediastinal and right hilar lymphadenopathy. Chest x-ray shows multilobar pneumonia. CT of the abdomen shows hepatic steatosis 05/29/2020-patient is on 100% CPAP at this time. Desaturating without CPAP support. covid test came back positive. Discussed case with the pharmacist to start on remdesivir.. Patient is weaned to room #305. To continue IV dexamethasone 6 mg IV daily. Started on a treatment dose of Lovenox. CRP, ESR, d-dimer is pending at this time. Condition is critical. Started on IV Zosyn this morning. Patient is already on Zithromax. 05/30/2020-no acute events in the last 24 hours. Afebrile. Patient is still on 15 L of oxygen pulse ox 100%. ABG was done this morning and 100% oxygen pH is 7.43/pco2 37/PO2 61/bicarb 24, oxygen saturation is 92%. Patient is receiving convulsant plasma, remidesevir, dexamethasone patient is on a treatment dose of Lovenox." 05/31/2020 Patient is still being maintained on 100% FiO2 on CPAP, essentially the maximum limits of noninvasive ventilatory support. If patient decompensates further, he will need to be intubated and sent to the ICU. This was discussed with nursing and with the patient as well. His chest x-ray did show significant improvement but clinically is not significantly improved and desaturates easily. Bilirubin and CRP are higher as well as higher d-dimer and ferritin. He is maintained on remdesivir, dexamethasone, treatment dose Lovenox, and antibiotics. He has no new complaints today. 06/01/2020 Patient notably desaturating this morning despite 100% FiO2 on BiPAP. I promptly contacted Dr. Garcia the geophysical prospecting surveyor and discussed the case with him and placed a critical care consult. Reason For Visit: COVID PNA, INTUBATED. Physical Exam Vital Signs: Temp Pulse Resp BP Pulse Ox 98.9 F 100 35 H 149/78 H 70 L 06/01/20 09:07 06/01/20 08:00 06/01/20 08:49 06/01/20 08:00 06/01/20 11:10 Intake & Output 05/31/20 06/01/20 06/02/20 06:59 06:59 06:59 Intake Total 1160 1810 204 Output Total 2525 2655 Balance -1365 -845 204 Weight 84.9 kg 82.9 kg 82.9 kg General appearance: PRESENT: obese, severe distress, well-developed, well- nourished Head exam: PRESENT: atraumatic, normocephalic Eye exam: PRESENT: conjunctiva pink Mouth exam: PRESENT: moist Respiratory exam: PRESENT: accessory muscle use, decreased breath sounds, tachypnea. ABSENT: unlabored Cardiovascular exam: PRESENT: tachycardia. ABSENT: diastolic murmur, rubs, systolic murmur GI/Abdominal exam: PRESENT: normal bowel sounds, soft. ABSENT: distended, guarding, mass, organolmegaly, rebound, tenderness Neurological exam: PRESENT: alert, awake, oriented to person, oriented to place, oriented to time, oriented to situation Psychiatric exam: PRESENT: anxious, normal mood Skin exam: PRESENT: dry, intact, warm Results Laboratory Results: 05/31/20 04:42 05/31/20 04:42 06/01/20 06/01/20 06:59 10:23 Carbonic Acid 1.01 L Cancelled HCO3/H2CO3 Ratio 22:1 Cancelled ABG pH 7.46 H Cancelled ABG pCO2 33.7 L Cancelled ABG pO2 49.9 L Cancelled ABG HCO3 23.2 Cancelled ABG O2 Saturation 87.5 L Cancelled ABG Base Excess 0 Cancelled FiO2 100% Cancelled 05/27/20 10:51 Blood Blood Culture - Final NO GROWTH IN 5 DAYS 05/27/20 08:23 Blood Blood Culture - Final NO GROWTH IN 5 DAYS 05/27/20 05/27/20 08:23 08:23 Creatine Kinase 165 CK-MB (CK-2) 1.07 Troponin I < 0.012 Impressions: Abdomen Ultrasound 05/27/20 09:16 IMPRESSION: No evidence of cholelithiasis or cholecystitis. Nonvisualization of the pancreas and abdominal aorta due to obscuration by intervening bowel gas. Otherwise unremarkable examination. Chest/Abdomen CTA 05/27/20 11:25 IMPRESSION: 1. No evidence for acute pulmonary emboli. 2. Extensive bilateral multifocal peripheral and parenchymal ground-glass opacities/consolidation and areas of consolidation in the lower lobes bilaterally. Commonly reported imaging features of COVID-19 pneumonia are present. 3. Mediastinal and right hilar lymphadenopathy. 3. Additional findings as above. Abdomen/Pelvis CT 05/27/20 11:26 IMPRESSION: 1. Hepatic steatosis. 2. Prominence of the gallbladder wall. No gallstones. 3. Small uncomplicated inguinal hernias. Chest X-Ray 06/01/20 11:05 IMPRESSION: Increasing bilateral alveolar airspace disease. Endotracheal tube is in the proximal right mainstem bronchus and should be with drawn 2.5 cm. Assessment and Plan - Diagnosis (1) Acute respiratory failure due to COVID-19 Is this a current diagnosis for this admission?: Yes Plan: Per previous physician: "COVID test is pending however clinically patient seems to have an acute respiratory illness secondary to COVID 05/29/2020-covid test is positive. To start the patient on remdesivir. Patient is already on IV dexamethasone. D-dimer, CRP, ESR is pending at this time. Started on a treatment dose of Lovenox. Added IV Zosyn to Zithromax. To continue CPAP with 100% oxygen. To repeat the ABG tomorrow morning 05/30/20-patient is receiving convulsant plasma, IV dexamethasone 60 mg daily, IV Zithromax, IV Zosyn, full dose of Lovenox, remedesivir. Patient is comfortably in the bed denies any problems. Is on CPAP 100%. Plan is to continue the present management and to repeat the labs including ABG tomorrow morning." 05/31/2020 Continued on dexamethasone, treatment dose Lovenox All cultures have been negative and there does not appear to be a bacterial component to his pneumonia, stop antibiotics as they recommended against in the setting of obvious COVID pneumonia without bacterial component Stop Remdesivir due to rising alk phos and bilirubin in the setting of elevated LFTs per the lvn lpn recommendations for experimental use in the setting of COVID-19 pneumonia Continues to be maxed out on 100% FiO2 on CPAP, next up is intubation if he further decompensates 06/01/2022 Severe continued decompensation requiring ICU level care Intubated after rapid response on 06/01 Critical care consult placed Usual interventions continued (2) Bilateral pneumonia Qualifiers: Pneumonia type: due to unspecified organism Is this a current diagnosis for this admission?: Yes Plan: Per previous physician: "CT scan suggest imaging features of COVID-19, mediastinal and right hilar lymphadenopathy. Follow-up chest x-ray today reveals no significant changes 05/29/2020-patient admitted with bilateral pneumonia, CT scan indicate you have coronavirus pneumonia. On dexamethasone, Zithromax to start on remedies away today. Covid test is positive. Patient works in a [employer]. 05/30/2020-patient is receiving IV Zosyn, IV Zithromax at this time. Blood cultures are negative. COVID test positive." Stopped all antibiotics as cultures are negative and he clearly has COVID-19 pneumonia (3) Hypoxia Is this a current diagnosis for this admission?: Yes Plan: Per previous physician: "05/29/2020-patient admitted with acute hypoxic respiratory failure most likely secondary to COVID-19 pneumonia. On 100% FiO2 on CPAP. 05/30/2020-ABG was done 100% oxygen pH is 1.43/PCO2 37/PO2 62/bicarb is 24/oxygen saturation is 92%. Plan is to continue CPAP and a repeat the labs tomorrow." 05/31/2022 ABG seems to be a bit improved with higher pO2 Repeat chest x-ray is improved as well Clinically patient seems to be just is better worse than he has been previously Decompensated (4) Obesity (BMI 30.0-34.9) Is this a current diagnosis for this admission?: Yes (5) Sepsis Qualifiers: Sepsis type: sepsis due to unspecified organism Is this a current diagnosis for this admission?: Yes Plan: Due to viral pneumonia and cytokine storm from COVID-19 (6) Suspected COVID-19 virus infection Is this a current diagnosis for this admission?: Yes (7) Transaminitis Is this a current diagnosis for this admission?: Yes Plan: 05/31/2020 Possibly due to Remdesivir, discontinued per lvn lpn's recommendations Get portal vein PVL to rule out thrombosis - Plan Summary Summary: Patient presents to the hospital with acute respiratory failure. He was found to be hypoxic with oxygen saturation of 88%, tachypneic with his respiratory rate as high as 37 as well as a transaminitis and bilateral lung opacities consistent with COVID-19. Patient is septic secondary to COVID-19. He received cefepime in the emergency room however patient will be placed on Zithromax, dexamethasone, and supplements including zinc and vitamin D3. I did contact pharmacy for initiating from this vi but at this time he has not met the hospitals criteria which include a positive COVID test and so we will follow-up with this subsequently. Patient is also noted to have a transaminitis likely secondary to COVID - Time Total Critical Time (Minutes): 30 Medications reviewed and adjusted accordingly: Yes Anticipated Discharge Disposition: Unknown, clinically unstable Anticipated Discharge Timeframe: Unknown, Clinically unstable - Inpatient Certification Based on my medical assessment, after consideration of the patient's comorbidities, presenting symptoms, or acuity I expect that the services needed warrant INPATIENT care.: Yes I certify that my determination is in accordance with my understanding of Medicare's requirements for reasonable and necessary INPATIENT services [42 CFR 412.3e].: Yes Medical Necessity: Significant Comorbidiites Make Outpatient Treatment Too Risky, Need Close Monitoring Due to Risk of Patient Decompensation, Risk of Complication if Not Cared For in Hospital, Risk of Diagnosis Which Will Require Inpatient Eval/Care/Monitoring
[2020-06-01] MEDS ORDERED: SUCCINYLCHOLINE CHLORIDE INJ 200 MG/10 ML VIAL ONE (13:15)
--- NOTE | 2020-06-01 13:29 | RADIOLOGY REPORT (SQ) ---
EXAM DESCRIPTION: KUB/ABDOMEN (SINGLE VIEW) IMAGES COMPLETED DATE/TIME: 06/01/2020 1:08 pm REASON FOR STUDY: Check Placement of NG Tube COMPARISON: None. NUMBER OF VIEWS: One view. TECHNIQUE: Supine radiographic image of the abdomen acquired. LIMITATIONS: None. FINDINGS: BOWEL GAS PATTERN: Normal bowel gas pattern. No dilated loops. CALCIFICATIONS: No suspicious calcifications. SOFT TISSUES: No gross mass or suggestion of organomegaly. HARDWARE: NG tube is in place. BONES: No acute fracture. No worrisome bone lesions. OTHER: Bibasilar infiltrates are noted. IMPRESSION: NG tube is in place. Gas pattern is nonspecific. TECHNICAL DOCUMENTATION: JOB ID: [id number] 2010 [employer]- All Rights Reserved Reading location - IP/workstation name: [email or web address]
[2020-06-01 16:56] LABS: ARTERIAL BLOOD BASE EXCESS -8.9 mmol/L; ARTERIAL BLOOD H2CO3 1.38 mmol/L (1.05-1.35); ARTERIAL BLOOD HCO3 18.6 mmol/L (20-24); ARTERIAL BLOOD O2 SATURATION 80.4 % (94-98); ARTERIAL BLOOD PCO2 45.7 mmHg (35-45); ARTERIAL BLOOD PH 7.23 (7.35-7.45); ARTERIAL BLOOD PO2 52.3 mmHg (80-100)
[2020-06-01 16:57] LABS: ARTERIAL BLOOD FIO2 100%
[2020-06-02] MEDS: PIPERACILLIN SODIUM/TAZOBACTAM 3.375 GM in NORMAL SALINE 100 ML IV SCH ×2 (00:10→05:57)
[2020-06-02] MEDS: ENOXAPARIN SODIUM INJ 100 MG/1 ML DISP.SYRIN SUBCUT SCH ×2 (00:14→10:08)
[2020-06-02] MEDS: PROPOFOL 1,000 MG/100 ML INFUS..BTL IV PRN ×5 (00:20→16:08)
[2020-06-02] MEDS: ASPIRIN 81 MG TABLET, ENT COATED PO SCH ×2 (00:20→21:07)
[2020-06-02] MEDS: HYDROMORPHONE HCL INJ/PF 2 MG/ML AMPULE IV PRN ×2 (00:23→12:34)
[2020-06-02 04:33] LABS: HEMATOCRIT 43.7 % (37.9-51.0); HEMOGLOBIN 15.2 g/dL (13.5-17.0); MEAN CORPUSCULAR HEMOGLOBIN 35.1 pg (27.0-33.4); MEAN CORPUSCULAR HGB CONC 34.7 g/dL (32.0-36.0); MEAN CORPUSCULAR VOLUME 101 fl (80-97); PLATELET COUNT 151 10^3/uL (150-450); RED BLOOD COUNT 4.31 10^6/uL (4.35-5.55); RED CELL DISTRIBUTION WIDTH 15.4 % (11.5-14.0)
[2020-06-02 04:52] LABS: ANION GAP 9 (5-19); BLOOD UREA NITROGEN 54 mg/dL (7-20); CALCIUM 7.1 mg/dL (8.4-10.2); CARBON DIOXIDE 23 mmol/L (22-30); CHLORIDE 107 mmol/L (98-107); GLUCOSE 174 mg/dL (75-110)
[2020-06-02 04:58] LABS: ABSOLUTE LYMPHOCYTES# (MANUAL) 0.1 10^3/uL (0.5-4.7); BAND NEUTROPHILS % (MANUAL) 2 % (3-5); BASOPHILS % (MANUAL) 0 % (0-2); EOSINOPHILS % (MANUAL) 0 % (0-6); LYMPHOCYTES % (MANUAL) 1 % (13-45); MONOCYTES % (MANUAL) 0 % (3-13); NUCLEATED RED BLOOD CELLS 1 /100 WBC (0); SEGMENTED NEUTROPHILS % (MAN) 97 % (42-78); TOTAL CELLS COUNTED 100
[2020-06-02] MEDS ORDERED: NORMAL SALINE 500 ML IV PRN (04:58)
[2020-06-02 04:59] LABS: ANISOCYTOSIS SLIGHT; POIKILOCYTOSIS SLIGHT; TEAR DROP CELLS 1+
[2020-06-02] MEDS ORDERED: INSULIN REG, HUMAN 100 UNIT/ML 3 ML VIAL (PYX) IV ONE (04:59)
[2020-06-02 05:00] LABS: PLATELET COMMENT ADEQUATE
[2020-06-02] MEDS ORDERED: DEXTROSE 50%-WATER 25 GM/50 ML DISP.SYRIN IV ONE (05:00)
[2020-06-02 05:01] LABS: ARTERIAL BLOOD BASE EXCESS -6.9 mmol/L; ARTERIAL BLOOD H2CO3 1.66 mmol/L (1.05-1.35); ARTERIAL BLOOD HCO3 21.7 mmol/L (20-24); ARTERIAL BLOOD O2 SATURATION 98.1 % (94-98); ARTERIAL BLOOD PH 7.21 (7.35-7.45); ARTERIAL BLOOD PO2 133.9 mmHg (80-100); ARTERIAL BLOOD TOTAL CO2 23.3 mmol/L (23-27)
[2020-06-02 05:15] LABS: ARTERIAL BLOOD FIO2 100%
[2020-06-02] MEDS ORDERED: ALBUTEROL SULFATE 0.083% NEB 2.5 MG/3 ML AMPUL NEB ONE (05:19)
[2020-06-02 06:15] LABS: ANION GAP 11 (5-19); BLOOD UREA NITROGEN 59 mg/dL (7-20); CALCIUM 7.2 mg/dL (8.4-10.2); CARBON DIOXIDE 23 mmol/L (22-30); CHLORIDE 105 mmol/L (98-107); GLUCOSE 179 mg/dL (75-110); POTASSIUM 5.9 mmol/L (3.6-5.0)
--- NOTE | 2020-06-02 08:48 | PDOC CRITICAL CARE PROG REPORT ---
General Date:: 06/02/20 ICU Day:: 2 Ventilator Day:: 2 Hospital Day:: 6 Resuscitation Status: Full Code Events in the past 12 to 24 Hours:: Remains more stable but much improved. Review of systems relevant to events:: Pulmonary, renal. Reason for ICU Addmission:: Needs intubation for covid PNA - Medications: Medications reviewed and adjusted accordingly: Yes Vasopressors:: None Sedation:: Diprivan Physical Exam Vital Signs: Temp Pulse Resp BP Pulse Ox 99.1 F 117 H 25 H 115/74 96 06/02/20 07:57 06/02/20 07:57 06/02/20 07:57 06/02/20 07:57 06/02/20 07:57 Intake & Output 06/01/20 06/02/20 06/03/20 06:59 06:59 06:59 Intake Total 1810 512 90 Output Total 2655 553 65 Balance -845 -41 25 Weight 82.9 kg 78.8 kg Weight/Height Weight 78.8 kg Height 5 ft 2 in General appearance: PRESENT: no acute distress, obese Head exam: PRESENT: atraumatic, normocephalic Eye exam: PRESENT: conjunctiva pink, EOMI, PERRLA. ABSENT: scleral icterus Ear exam: PRESENT: normal external ear exam Mouth exam: PRESENT: moist, tongue midline Respiratory exam: PRESENT: clear to auscultation mayela, decreased breath sounds. ABSENT: rales, rhonchi, wheezes Cardiovascular exam: PRESENT: RRR, tachycardia. ABSENT: diastolic murmur, rubs, systolic murmur GI/Abdominal exam: PRESENT: normal bowel sounds, soft. ABSENT: distended, guarding, mass, organolmegaly, rebound, tenderness Rectal exam: PRESENT: deferred Gentrourinary exam: PRESENT: indwelling catheter, other - Penis positioned while prone with no kinks, twists or pressure. Extremities exam: PRESENT: full ROM. ABSENT: calf tenderness, clubbing, pedal edema Musculoskeletal exam: PRESENT: normal inspection Neurological exam: PRESENT: other - Sedated. Skin exam: PRESENT: dry, intact, warm. ABSENT: cyanosis, rash Tubes/Lines: PRESENT: Endotracheal Tube, Nasogastic Tube Laboratory/Radiographs Laboratory Results: 06/02/20 03:50 06/02/20 05:42 05/31/20 06/01/2020 04:42 10:23 16:45 WBC RBC Hgb Hct MCV MCH MCHC RDW Plt Count Seg Neutrophils % Carbonic Acid Cancelled 1.38 H HCO3/H2CO3 Ratio Cancelled 13:1 ABG pH Cancelled 7.23 L ABG pCO2 Cancelled 45.7 H ABG pO2 Cancelled 52.3 L ABG HCO3 Cancelled 18.6 L ABG O2 Saturation Cancelled 80.4 L ABG Base Excess Cancelled -8.9 FiO2 Cancelled 100% Sodium Potassium Chloride Carbon Dioxide Anion Gap BUN Creatinine Est GFR ( Amer) Glucose Calcium Triglycerides 124 06/02/20 06/02/20 06/02/20 03:50 03:50 04:23 WBC 12.0 H RBC 4.31 L Hgb 15.2 Hct 43.7 MCV 101 H MCH 35.1 H MCHC 34.7 RDW 15.4 H Plt Count 151 Seg Neutrophils % Not Reportable Carbonic Acid 1.66 H HCO3/H2CO3 Ratio 13:1 ABG pH 7.21 L ABG pCO2 55.0 H ABG pO2 133.9 H ABG HCO3 21.7 ABG O2 Saturation 98.1 H ABG Base Excess -6.9 FiO2 100% Sodium 139.0 Potassium 6.0 H* Chloride 107 Carbon Dioxide 23 Anion Gap 9 BUN 54 H Creatinine 2.40 H Est GFR ( Amer) 35 L Glucose 174 H Calcium 7.1 L Triglycerides 06/02/20 05:42 WBC RBC Hgb Hct MCV MCH MCHC RDW Plt Count Seg Neutrophils % Carbonic Acid HCO3/H2CO3 Ratio ABG pH ABG pCO2 ABG pO2 ABG HCO3 ABG O2 Saturation ABG Base Excess FiO2 Sodium 138.6 Potassium 5.9 H Chloride 105 Carbon Dioxide 23 Anion Gap 11 BUN 59 H Creatinine 2.78 H Est GFR ( Amer) 30 L Glucose 179 H Calcium 7.2 L Triglycerides 05/27/20 10:51 Blood Blood Culture - Final NO GROWTH IN 5 DAYS 05/27/20 08:23 Blood Blood Culture - Final NO GROWTH IN 5 DAYS 05/27/20 05/27/20 08:23 08:23 Creatine Kinase 165 CK-MB (CK-2) 1.07 Troponin I < 0.012 Impressions: Abdomen Ultrasound 05/27/20 09:16 IMPRESSION: No evidence of cholelithiasis or cholecystitis. Nonvisualization of the pancreas and abdominal aorta due to obscuration by intervening bowel gas. Otherwise unremarkable examination. Chest/Abdomen CTA 05/27/20 11:25 IMPRESSION: 1. No evidence for acute pulmonary emboli. 2. Extensive bilateral multifocal peripheral and parenchymal ground-glass opacities/consolidation and areas of consolidation in the lower lobes bilaterally. Commonly reported imaging features of COVID-19 pneumonia are present. 3. Mediastinal and right hilar lymphadenopathy. 3. Additional findings as above. Abdomen/Pelvis CT 05/27/20 11:26 IMPRESSION: 1. Hepatic steatosis. 2. Prominence of the gallbladder wall. No gallstones. 3. Small uncomplicated inguinal hernias. KUB X-Ray 06/01/20 10:43 IMPRESSION: NG tube is in place. Gas pattern is nonspecific. All labs, radiographs, diagnostic studies and EKGs were personally reviewed: Yes In addition, reports of radiographic and diagnostic studies were read: Yes Assessment and Plan - Diagnosis (1) Acute respiratory failure due to COVID-19 Is this a current diagnosis for this admission?: Yes Plan: Still requiring vent support at a lower level but still high. Plan to keep proned 16 hours and supine 8. (2) Hypoxia Is this a current diagnosis for this admission?: Yes Plan: Still needing vent support. (3) Obesity (BMI 30.0-34.9) Is this a current diagnosis for this admission?: Yes Plan: Mild but still a risk factor. (4) ARF (acute renal failure) Qualifiers: Acute renal failure type: with acute tubular necrosis Qualified Code(s): N17.0 - Acute kidney failure with tubular necrosis Is this a current diagnosis for this admission?: Yes Plan: Probably ATN. With his worsening of renal function with GFR 24, Cr 2.7 and potassium of 5.[address] Sy to consult for possible need for HD. Plan Summary: Keep vented. Try supine after 16 hours. Kayexalate ordered. I dont think bicarb drip is needed. Critical Time Critical Time (minutes): 35 Level of Care: ICU Anticipated discharge: SNF Anticipated DC Timeframe: Other -: 1. The care of a critical patient is a dynamic process. This note is a apprenticeship training representative synopsis but static in nature. The timeframe for treatments given in order is not necessarily the actual time these treatments may have been done. 2. This patient requires critical care secondary to ongoing requirements for therapy not offered or safe outside the critical care environment. Transfer to a lower level of care will result in altered life or limb morbidity and mortality. 3. Multidisciplinary rounds completed. 4. ABCDE bundle addressed.
--- NOTE | 2020-06-02 09:50 | RADIOLOGY REPORT (SQ) ---
EXAM DESCRIPTION: CHEST SINGLE VIEW IMAGES COMPLETED DATE/TIME: 06/02/2020 6:45 am REASON FOR STUDY: Just intubated. COMPARISON: AP view of the chest from 06/01/2020. EXAM PARAMETERS: NUMBER OF VIEWS: One view. TECHNIQUE: An AP view of the chest was obtained. RADIATION DOSE: NA LIMITATIONS: None. FINDINGS: LUNGS AND PLEURA: Unchanged diffuse alveolar opacities. MEDIASTINUM AND HILAR STRUCTURES: Stable mediastinal and hilar contours. HEART AND VASCULAR STRUCTURES: Stable cardiac silhouette. BONES: No acute findings. HARDWARE: The tip of the endotracheal tube projects 5.3 cm above the charlee. The tip and side hole o f the enteric tube projects within the gastric lumen. OTHER: No other findings. IMPRESSION: Tubes and lines as above. Otherwise unchanged radiographic appearance of the chest. TECHNICAL DOCUMENTATION: JOB ID: [id number] 2010 [employer]- All Rights Reserved Reading location - IP/workstation name: [email or web address]
[2020-06-02] MEDS: ZINC SULFATE 220 MG CAPSULE PO SCH (10:07)
[2020-06-02] MEDS: SODIUM POLYSTYRENE SULFONATE 15 GM/60 ML PO SCH ×3 (10:07→22:43)
[2020-06-02] MEDS: CHOLECALCIFEROL (D3) 1,000 UNIT (25 MCG) TABLET PO SCH (10:07)
[2020-06-02] MEDS: PANTOPRAZOLE SODIUM 40 MG VIAL IV SCH (10:07)
[2020-06-02] MEDS: DEXAMETHASONE SOD PHOS INJ 10 MG/1 ML VIAL IV SCH (10:07)
[2020-06-02] MEDS: AZITHROMYCIN 500 MG in DEXTROSE 5%-WATER 250 ML IV SCH (10:35)
[2020-06-02] MEDS ORDERED: EPINEPHRINE INJ 1 MG/10 ML DISP.SYRIN ONE ×2 (11:26→18:59)
[2020-06-02] MEDS ORDERED: SODIUM BICARBONATE 8.4% INJ 50 MEQ/50 ML DISP.SYRIN ONE ×2 (11:26→21:15)
[2020-06-02] MEDS: PIPERACILLIN SODIUM/TAZOBACTAM 2.25 GM in NORMAL SALINE 50 ML IV SCH ×2 (12:24→19:08)
[2020-06-02] MEDS ORDERED: GLUCAGON,HUMAN RECOMB 1 MG INJ IM PRN (12:27)
[2020-06-02] MEDS ORDERED: DEXTROSE 40% GEL 15 GM TUBE PO PRN ×2 (12:27)
[2020-06-02] MEDS ORDERED: DEXTROSE 50%-WATER 25 GM/50 ML DISP.SYRIN IV PRN ×2 (12:27)
[2020-06-02] MEDS ORDERED: HYDROMORPHONE HCL INJ/PF 2 MG/ML AMPULE IV PRN (12:28)
[2020-06-02] MEDS: INSULIN REG, HUMAN 100 UNIT/ML 3 ML VIAL (PYX) SUBCUT SCH ×2 (12:37→18:56)
--- NOTE | 2020-06-02 12:55 | PDOC CONSULTATION ---
Consultation Consult Date: 06/02/20 Provider Consulted: Benjamin BARONE Consult reason:: oliguric ANDRES with hyperkalemia History of Present Illness Admission Date/PCP: 05/27/20 14:17 History of Present Illness: DEMARIO AMEZQUITA is being seen in the ICU today who is currently intubated and sedated. Therefore chart review was done and discussions were done with the assisted living coordinator. This patient is a 50-year-old patient presented to the ED with complaints of worsening shortness of breath, cough associated with blood which started about 3 days prior to admission. Also complained of abdominal pain due to coughing. He works at a [employer]. Was tachypneic and hypoxic initially with a saturation of 88% which improved with supplemental oxygen CT scan of the chest showed extensive bilateral multifocal peripheral and parenchymal groundglass opacitiesconsolidation and areas of consolidation in the lower lobes bilaterally. Currently reported imaging features of COVID-19 pneumonia are present. There is also mediastinal and right hilar lymphadenopathy. Chest x-ray shows multilobar pneumonia. CT of the abdomen shows hepatic steatosis. Patient was initially admitted to the floor but his breathing got more embarrassing and had to be urgently intubated yesterday and transferred to the ICU. Patient is receiving convulsant plasma, remidesevir, dexamethasone and Lovenox.Furthermore his urine output recently began to drop and his creatinine has begun to rise along with hyperkalemia and acidosis. Past Medical History Cardiac Medical History: Denies: Myocardial Infarction Pulmonary Medical History: Denies: Asthma Neurological Medical History: Denies: Seizures GI Medical History: Denies: Hepatitis, Hiatal Hernia Psychiatric Medical History: Denies: Depression Past Surgical History Past Surgical History: Denies: Pacemaker Social History Smoking Status: Never Smoker Frequency of Alcohol Use: None Hx Recreational Drug Use: No Drugs: None Hx Prescription Drug Abuse: No - Advance Directive Resuscitation Status: Full Code Family History Parental Family History Reviewed: No - Patient intubated and sedated. Children Family History Reviewed: No Sibling(s) Family History Reviewed.: No Medication/Allergy Home Medications: No Home Medications 05/29/20 Allergies/Adverse Reactions: No Known Allergies Allergy (Verified 06/20/17 06:50) Review of Systems ROS unobtainable: Due to endotracheal tube - Chart review was done. Discussions were done with the treating nurse. Physical Exam Vital Signs: Temp Pulse Resp BP Pulse Ox 99.5 F 109 H 18 102/69 95 06/02/20 12:00 06/02/20 12:00 06/02/20 12:00 06/02/20 12:00 06/02/20 12:00 Intake & Output 06/01/20 06/02/20 06/03/20 06:59 06:59 06:59 Intake Total 1810 762 414 Output Total 2655 553 225 Balance -845 209 189 Weight 82.9 kg 78.8 kg Exam: Patient currently intubated and sedated. Eye exam: PRESENT: EOMI, PERRLA. ABSENT: scleral icterus Respiratory exam: PRESENT: clear to auscultation mayela. ABSENT: crackles Cardiovascular exam: PRESENT: +S1, +S2 GI/Abdominal exam: PRESENT: normal bowel sounds, soft. ABSENT: organomegaly Extremities exam: ABSENT: pedal edema Results Laboratory Results: 06/02/20 03:50 06/02/20 05:42 05/31/20 06/01/20 06/02/20 04:42 16:45 03:50 WBC 12.0 H RBC 4.31 L Hgb 15.2 Hct 43.7 MCV 101 H MCH 35.1 H MCHC 34.7 RDW 15.4 H Plt Count 151 Seg Neutrophils % Not Reportable Carbonic Acid 1.38 H HCO3/H2CO3 Ratio 13:1 ABG pH 7.23 L ABG pCO2 45.7 H ABG pO2 52.3 L ABG HCO3 18.6 L ABG O2 Saturation 80.4 L ABG Base Excess -8.9 FiO2 100% Sodium Potassium Chloride Carbon Dioxide Anion Gap BUN Creatinine Est GFR ( Amer) Glucose Calcium Triglycerides 124 06/02/20 06/02/20 06/02/20 03:50 04:23 05:42 WBC RBC Hgb Hct MCV MCH MCHC RDW Plt Count Seg Neutrophils % Carbonic Acid 1.66 H HCO3/H2CO3 Ratio 13:1 ABG pH 7.21 L ABG pCO2 55.0 H ABG pO2 133.9 H ABG HCO3 21.7 ABG O2 Saturation 98.1 H ABG Base Excess -6.9 FiO2 100% Sodium 139.0 138.6 Potassium 6.0 H* 5.9 H Chloride 107 105 Carbon Dioxide 23 23 Anion Gap 9 11 BUN 54 H 59 H Creatinine 2.40 H 2.78 H Est GFR ( Amer) 35 L 30 L Glucose 174 H 179 H Calcium 7.1 L 7.2 L Triglycerides 05/27/20 10:51 Blood Blood Culture - Final NO GROWTH IN 5 DAYS 05/27/20 05/27/20 08:23 08:23 Creatine Kinase 165 CK-MB (CK-2) 1.07 Troponin I < 0.012 Impressions: Abdomen Ultrasound 05/27/20 09:16 IMPRESSION: No evidence of cholelithiasis or cholecystitis. Nonvisualization of the pancreas and abdominal aorta due to obscuration by intervening bowel gas. Otherwise unremarkable examination. Chest/Abdomen CTA 05/27/20 11:25 IMPRESSION: 1. No evidence for acute pulmonary emboli. 2. Extensive bilateral multifocal peripheral and parenchymal ground-glass opacities/consolidation and areas of consolidation in the lower lobes bila terally. Commonly reported imaging features of COVID-19 pneumonia are present. 3. Mediastinal and right hilar lymphadenopathy. 3. Additional findings as above. Abdomen/Pelvis CT 05/27/20 11:26 IMPRESSION: 1. Hepatic steatosis. 2. Prominence of the gallbladder wall. No gallstones. 3. Small uncomplicated inguinal hernias. KUB X-Ray 06/01/20 10:43 IMPRESSION: NG tube is in place. Gas pattern is nonspecific. Chest X-Ray 06/02/20 06:00 IMPRESSION: Tubes and lines as above. Otherwise unchanged radiographic appearance of the chest. Assessment & Plan - Diagnosis (1) ARF (acute renal failure) Qualifiers: Acute renal failure type: with acute tubular necrosis Qualified Code(s): N17.0 - Acute kidney failure with tubular necrosis Is this a current diagnosis for this admission?: Yes Plan: This is a patient with Covid pneumonia and respiratory failure now intubated and sedated showing acute kidney insult with decreasing urine output along with hyperkalemia and acidosis. Unfortunately it looks like the patient might progress into worsening renal failure that may require dialysis in the next 24- 48 hours. Discussed this with Dr. Altamirano/assisted living coordinator about placing of a temporary femoral dialysis catheter early in the morning if his urine output has dropped further along with a concomitant rise of his renal numbers. Given the weekend coming, it would be the best option to initiate dialysis tomorrow if that is the case. Currently no acute indications for renal replacements. (2) Acute respiratory failure due to COVID-19 Is this a current diagnosis for this admission?: Yes Plan: On appropriate medications and being managed by Dr. Altamirano/assisted living coordinator. (3) Bilateral pneumonia Qualifiers: Pneumonia type: due to unspecified organism Is this a current diagnosis for this admission?: Yes Plan: Secondary to covid pneumonia. (4) Hyperkalemia Plan: Recommend treating with Kayexalate for now. Discussed with Dr. Altamirano/in tensivist. (5) Obesity (BMI 30.0-34.9) Is this a current diagnosis for this admission?: Yes Plan: Status quo.
--- NOTE | 2020-06-02 17:50 | Progress Note ---
Provider Note Provider Note: Called to cardiac arrest at about 1700. Patient suddenly arrested in a PEA arrest by the time I got there. ACLS protocol followed for several rounds. ROSC obtained with cuff BP of 112/62. HR 150 likely due to epinephrine. During CPR pt was manually bagged with AMBU bag. Much blood seen and suctioned out. My impress ion is a pulmonary hemmorhage due to COVID that led to an episode of hypoxia that caused the arrest. CXR pending to assess for bleeding. Fiance coming in. Prognosis not good. Marlen attempted in R femoral artery and R axillary without success.
[2020-06-02 18:20] LABS: BLOOD UREA NITROGEN 70 mg/dL (7-20); CALCIUM 7.2 mg/dL (8.4-10.2); GLUCOSE 192 mg/dL (75-110); POTASSIUM 5.3 mmol/L (3.6-5.0)
[2020-06-02 18:23] LABS: ARTERIAL BLOOD BASE EXCESS -25.4 mmol/L; ARTERIAL BLOOD H2CO3 1.57 mmol/L (1.05-1.35); ARTERIAL BLOOD HCO3 8.7 mmol/L (20-24); ARTERIAL BLOOD O2 SATURATION 74.7 % (94-98); ARTERIAL BLOOD PO2 68.1 mmHg (80-100); ARTERIAL BLOOD TOTAL CO2 10.3 mmol/L (23-27)
[2020-06-02 18:24] LABS: ARTERIAL BLOOD FIO2 100%; ARTERIAL BLOOD PH 6.84 (7.35-7.45)
[2020-06-02 18:25] LABS: CHLORIDE 104 mmol/L (98-107)
[2020-06-02 18:34] LABS: ANION GAP 28 (5-19)
[2020-06-02 18:35] LABS: CARBON DIOXIDE 10 mmol/L (22-30)
[2020-06-02] MEDS ORDERED: SODIUM BICARBONATE 8.4% INJ 50 MEQ/50 ML DISP.SYRIN IV ONE ×3 (18:45→23:00)
[2020-06-02] MEDS ORDERED: EPINEPHRINE INJ/PF 1 MG/1 ML AMPULE ONE ×2 (19:26→19:27)
[2020-06-02] MEDS ORDERED: DEXTROSE 5%-WATER 250 ML with EPINEPHRINE/PF 1 MG IV PRN ×2 (19:28)
--- NOTE | 2020-06-02 19:31 | RADIOLOGY REPORT (SQ) ---
EXAM DESCRIPTION: CHEST SINGLE VIEW IMAGES COMPLETED DATE/TIME: 06/02/2020 6:19 pm REASON FOR STUDY: S/P code, pulmonary hemorrhage. COMPARISON: None. EXAM PARAMETERS: NUMBER OF VIEWS: One view. TECHNIQUE: Single frontal radiographic view of the chest acquired. RADIATION DOSE: NA LIMITATIONS: None. FINDINGS: LUNGS AND PLEURA: There appears to be alveolar disease in the right lung more than left. MEDIASTINUM AND HILAR STRUCTURES: No masses. Contour normal. HEART AND VASCULAR STRUCTURES: Heart normal in size. Normal vasculature. BONES: No acute findings. HARDWARE: Endotracheal tube has its tip right at the charlee. NG tube extends to the stomach. OTHER: No other significant finding. IMPRESSION: Airspace disease in the right lung more than left. May represent pulmonary edema. Emerita ot exclude pulmonary hemorrhage. Endotracheal tube as described. COMMENT: Discussed the endotracheal tube position with the ICU nurse. TECHNICAL DOCUMENTATION: JOB ID: [id number] 2010 [employer]- All Rights Reserved Reading location - IP/workstation name: [email or web address]
[2020-06-02] MEDS: DEXTROSE 5%-WATER 250 ML with EPINEPHRINE/PF 2 MG IV PRN ×4 (19:45→23:34)
[2020-06-02] MEDS ORDERED: NOREPINEPHRINE BITARTRATE INJ/PF 4 MG/4 ML SDV IV ONE (20:45)
[2020-06-02] MEDS ORDERED: FENTANYL CITRATE INJ/PF 100 MCG/2 ML AMPUL IV PRN (20:56)
[2020-06-02] MEDS: DEXTROSE 5%-WATER 250 ML with NOREPINEPHRINE BITARTRATE 4 MG IV PRN ×2 (21:08)
[2020-06-02 21:57] LABS: ARTERIAL BLOOD BASE EXCESS -23.3 mmol/L; ARTERIAL BLOOD FIO2 100%; ARTERIAL BLOOD H2CO3 1.78 mmol/L (1.05-1.35); ARTERIAL BLOOD HCO3 10.4 mmol/L (20-24); ARTERIAL BLOOD O2 SATURATION 85.4 % (94-98); ARTERIAL BLOOD PCO2 59.3 mmHg (35-45); ARTERIAL BLOOD PO2 84.3 mmHg (80-100); ARTERIAL BLOOD TOTAL CO2 12.2 mmol/L (23-27)
[2020-06-02 21:58] LABS: ARTERIAL BLOOD PH 6.86 (7.35-7.45)
[2020-06-02] MEDS: DEXTROSE 5%-WATER 1000 ML 1,000 ML with SODIUM BICARBONATE 150 MEQ IV PRN ×2 (23:34)
--- NOTE | 2020-06-03 00:09 | Operative Report ---
Bedside Procedure - History of Present Illness Indication for Procedure: cardiac arrest requiring high doses epi Provider: EL NARAYAN - Central Line Left Internal jugular Time completed: 22:15 Consent obtained: Yes - discussed with patient brother and he verbally gave consent for placement Central line pre-insertion: Sterile PPE donned, Chloraprep applied, Sterile drapes applied Central line size (Fr.): 7 Central line lumen type: Triple Anesthetic type: 1% Lidocaine mL's of anesthesia: 2 Ultrasound guided: Yes Line secured with sutures: Yes Central line post-insertion: Blood return from lumens, Biopatch applied, Sterile dressing applied, Position confirmed w/ CXR Number of attempts: 2 - placed vas cath on right IJ very positional pulled vas cath over wire attempted to place TLC over wire without success. Right IJ site aborted pressure applied and place TLC on left. Complications: No
--- NOTE | 2020-06-03 00:15 | RADIOLOGY REPORT (SQ) ---
CLINICAL HISTORY: TLC PLACEMENT COMPARISON: 06/02/2020. TECHNIQUE: XR CHEST 1 VIEW 06/02/2020 10:38 PM CDT FINDINGS: The heart is borderline in size. There is moderate airspace disease throughout both lungs diffusely. There is no pleural effusion. There is no pneumothorax. There are no acute osseous findings. Endotracheal tube, nasogastric tube are unchanged. Left IJ central line tip is in the lower SVC. IMPRESSION: No pneumothorax following left IJ central line placement.
[2020-06-03 00:16] LABS: ALKALINE PHOSPHATASE 303 U/L (38-126); BILIRUBIN,DIRECT 3.6 mg/dL (0.0-0.4); BILIRUBIN,TOTAL 4.1 mg/dL (0.2-1.3); BLOOD UREA NITROGEN 66 mg/dL (7-20); GLUCOSE 220 mg/dL (75-110); POTASSIUM 5.1 mmol/L (3.6-5.0); TOTAL PROTEIN 5.9 g/dL (6.3-8.2)
[2020-06-03 00:24] LABS: CARBON DIOXIDE 12 mmol/L (22-30); CHLORIDE 101 mmol/L (98-107)
[2020-06-03 00:29] LABS: ASPARTATE AMINO TRANSFERASE 1260 U/L (17-59)
[2020-06-03 00:53] LABS: ANION GAP 29 (5-19)
[2020-06-03] MEDS: PIPERACILLIN SODIUM/TAZOBACTAM 2.25 GM in NORMAL SALINE 50 ML IV SCH ×4 (00:59→22:06)
[2020-06-03] MEDS: INSULIN REG, HUMAN 100 UNIT/ML 3 ML VIAL (PYX) SUBCUT SCH ×3 (01:00→07:33)
[2020-06-03] MEDS: DEXTROSE 5%-WATER 250 ML with EPINEPHRINE/PF 2 MG IV PRN ×20 (01:00→17:17)
[2020-06-03 01:25] LABS: ARTERIAL BLOOD BASE EXCESS -22.4 mmol/L; ARTERIAL BLOOD H2CO3 1.87 mmol/L (1.05-1.35); ARTERIAL BLOOD HCO3 11.1 mmol/L (20-24); ARTERIAL BLOOD O2 SATURATION 80.2 % (94-98); ARTERIAL BLOOD PCO2 62.1 mmHg (35-45); ARTERIAL BLOOD PO2 74.2 mmHg (80-100)
[2020-06-03 01:28] LABS: ARTERIAL BLOOD FIO2 100; ARTERIAL BLOOD PH 6.87 (7.35-7.45)
[2020-06-03] MEDS ORDERED: NOREPINEPHRINE BITARTRATE INJ/PF 4 MG/4 ML SDV IV ONE ×3 (03:36→17:43)
[2020-06-03] MEDS: DEXTROSE 5%-WATER 250 ML with NOREPINEPHRINE BITARTRATE 4 MG IV PRN ×12 (03:40→17:48)
[2020-06-03 05:25] LABS: ARTERIAL BLOOD BASE EXCESS -22.2 mmol/L; ARTERIAL BLOOD FIO2 100; ARTERIAL BLOOD H2CO3 1.54 mmol/L (1.05-1.35); ARTERIAL BLOOD HCO3 10.1 mmol/L (20-24); ARTERIAL BLOOD O2 SATURATION 77.7 % (94-98); ARTERIAL BLOOD PCO2 51.2 mmHg (35-45); ARTERIAL BLOOD PO2 67.2 mmHg (80-100); ARTERIAL BLOOD TOTAL CO2 11.7 mmol/L (23-27)
[2020-06-03 05:27] LABS: ARTERIAL BLOOD PH 6.92 (7.35-7.45)
[2020-06-03] MEDS ORDERED: SODIUM BICARBONATE 8.4% INJ 50 MEQ/50 ML DISP.SYRIN ONE (05:47)
[2020-06-03] MEDS: DEXTROSE 5%-WATER 1000 ML 1,000 ML with SODIUM BICARBONATE 150 MEQ IV PRN ×4 (06:05→12:45)
[2020-06-03 06:51] LABS: BLOOD UREA NITROGEN 66 mg/dL (7-20); CHLORIDE 93 mmol/L (98-107); POTASSIUM 4.6 mmol/L (3.6-5.0)
[2020-06-03 07:00] LABS: CARBON DIOXIDE 12 mmol/L (22-30)
[2020-06-03 07:02] LABS: ANION GAP 32 (5-19)
[2020-06-03 07:04] LABS: CALCIUM 5.6 mg/dL (8.4-10.2); GLUCOSE 423 mg/dL (75-110)
[2020-06-03 07:10] LABS: HEMATOCRIT 34.6 % (37.9-51.0); MEAN CORPUSCULAR HEMOGLOBIN 34.2 pg (27.0-33.4); MEAN CORPUSCULAR HGB CONC 30.6 g/dL (32.0-36.0); PLATELET COUNT 120 10^3/uL (150-450); RED BLOOD COUNT 3.09 10^6/uL (4.35-5.55); RED CELL DISTRIBUTION WIDTH 18.1 % (11.5-14.0); WHITE BLOOD COUNT 23.2 10^3/uL (4.0-10.5)
[2020-06-03 07:16] LABS: HEMOGLOBIN 10.6 g/dL (13.5-17.0)
[2020-06-03 07:29] LABS: ABSOLUTE LYMPHOCYTES# (MANUAL) 1.2 10^3/uL (0.5-4.7); ABSOLUTE MONOCYTES # (MANUAL) 0.9 10^3/uL (0.1-1.4); BAND NEUTROPHILS % (MANUAL) 3 % (3-5); BASOPHILS % (MANUAL) 0 % (0-2); EOSINOPHILS % (MANUAL) 0 % (0-6); LYMPHOCYTES % (MANUAL) 5 % (13-45); METAMYELOCYTES % (MANUAL) 1 % (0-1); MONOCYTES % (MANUAL) 4 % (3-13); NUCLEATED RED BLOOD CELLS 1 /100 WBC (0); SEGMENTED NEUTROPHILS % (MAN) 87 % (42-78); TOTAL CELLS COUNTED 100
[2020-06-03 07:34] LABS: POLYCHROMASIA 1+; TOXIC VACUOLATION PRESENT
[2020-06-03 07:35] LABS: ANISOCYTOSIS 1+; MEAN CORPUSCULAR VOLUME 112 fl (80-97); PAPPENHEIMER BODIES PRESENT; PLATELET COMMENT DECREASED
[2020-06-03] MEDS ORDERED: GLUCAGON,HUMAN RECOMB 1 MG INJ IM PRN (07:45)
[2020-06-03] MEDS ORDERED: DEXTROSE 40% GEL 15 GM TUBE PO PRN ×2 (07:45)
[2020-06-03] MEDS ORDERED: DEXTROSE 50%-WATER 25 GM/50 ML DISP.SYRIN IV PRN ×2 (07:45)
[2020-06-03] MEDS ORDERED: DEXMEDETOMIDINE IN 0.9 % NACL 400 MCG/100 ML RTUPB IV PRN (07:48)
[2020-06-03] MEDS ORDERED: INSULIN REG, HUMAN 100 UNIT/ML 3 ML VIAL (PYX) ONE (08:23)
[2020-06-03] MEDS: NORMAL SALINE 100 ML with INSULIN REGULAR, HUMAN 100 UNIT IV PRN ×6 (08:56→20:00)
--- NOTE | 2020-06-03 09:21 | RADIOLOGY REPORT (SQ) ---
EXAM DESCRIPTION: CHEST SINGLE VIEW IMAGES COMPLETED DATE/TIME: 06/03/2020 6:55 am REASON FOR STUDY: intubated COMPARISON: AP view of the chest from 06/02/2020. EXAM PARAMETERS: NUMBER OF VIEWS: One view. TECHNIQUE: An AP view of the chest was obtained. RADIATION DOSE: NA LIMITATIONS: None. FINDINGS: LUNGS AND PLEURA: Unchanged appearance of the lungs and pleura. MEDIASTINUM AND HILAR STRUCTURES: Stable mediastinal hilar contours. HEART AND VASCULAR STRUCTURES: Stable cardiac silhouette. BONES: No acute findings. HARDWARE: The tip of the endotracheal tube projects 4.5 cm above the charlee. The tip of the left IJ central venous catheter projects within the SVC. The tip of the enteric tube projects within the gas tric antrum. OTHER: No other finding. IMPRESSION: Tubes and lines as above. Otherwise unchanged radiographic appearance of the chest. TECHNICAL DOCUMENTATION: JOB ID: [id number] 2010 [employer]- All Rights Reserved Reading location - IP/workstation name: [email or web address]
--- NOTE | 2020-06-03 09:23 | PDOC CRITICAL CARE PROG REPORT ---
General Date:: 06/03/20 ICU Day:: 2 Ventilator Day:: 2 Hospital Day:: 7 Resuscitation Status: Full Code Events in the past 12 to 24 Hours:: Cardiac arrest with need for epinephrine drip. Review of systems relevant to events:: Neurological, pulmonary, CV, renal. Reason for ICU Addmission:: Needs intubation for covid PNA - Medications: Medications reviewed and adjusted accordingly: Yes Vasopressors:: Epinephrine. Sedation:: None. Physical Exam Vital Signs: Temp Pulse Resp BP Pulse Ox 98.2 F 99 20 103/34 L 87 L 06/03/20 08:09 06/03/20 08:00 06/03/20 08:00 06/03/20 08:00 06/03/20 08:00 Intake & Output 06/02/20 06/03/20 06/04/20 06:59 06:59 06:59 Intake Total 762 3725 502 Output Total 553 592 2 Balance 209 3133 500 Weight 78.8 kg 85.8 kg Weight/Height Weight 85.8 kg Height 5 ft 2 in General appearance: PRESENT: no acute distress, obese Head exam: PRESENT: atraumatic, normocephalic Eye exam: PRESENT: conjunctiva pink, EOMI, PERRLA. ABSENT: scleral icterus Ear exam: PRESENT: normal external ear exam Mouth exam: PRESENT: moist, tongue midline Respiratory exam: PRESENT: clear to auscultation mayela, decreased breath sounds. ABSENT: rales, rhonchi, wheezes Cardiovascular exam: PRESENT: RRR, tachycardia. ABSENT: diastolic murmur, rubs, systolic murmur GI/Abdominal exam: PRESENT: normal bowel sounds, soft. ABSENT: distended, guarding, mass, organolmegaly, rebound, tenderness Rectal exam: PRESENT: deferred Extremities exam: PRESENT: full ROM. ABSENT: calf tenderness, clubbing, pedal edema Musculoskeletal exam: PRESENT: normal inspection Neurological exam: PRESENT: other - He is not on sedation and has no neurological purposeful movements. Skin exam: PRESENT: dry, intact, warm. ABSENT: cyanosis, rash Tubes/Lines: PRESENT: Endotracheal Tube, Central Line, Nasogastic Tube Laboratory/Radiographs Laboratory Results: 06/03/20 06:50 06/03/20 06:23 09/17/20 09/17/20 09/17/20 17:40 17:45 21:47 WBC RBC Hgb Hct MCV MCH MCHC RDW Plt Count Seg Neutrophils % Carbonic Acid 1.57 H 1.78 H HCO3/H2CO3 Ratio 5:1 5:1 ABG pH 6.84 L* 6.86 L* ABG pCO2 52.0 H 59.3 H ABG pO2 68.1 L 84.3 ABG HCO3 8.7 L 10.4 L ABG O2 Saturation 74.7 L 85.4 L ABG Base Excess -25.4 -23.3 FiO2 100% 100% Sodium 142.0 Potassium 5.3 H Chloride 104 Carbon Dioxide 10 L* D Anion Gap 28 H BUN 70 H Creatinine 4.04 H Est GFR ( Amer) 19 L Glucose 192 H Lactic Acid Calcium 7.2 L Magnesium Total Bilirubin AST Alkaline Phosphatase Total Protein Albumin 06/02/20 06/03/20 06/03/20 23:53 01:18 04:53 WBC Cancelled RBC Cancelled Hgb Cancelled Hct Cancelled MCV Cancelled MCH Cancelled MCHC Cancelled RDW Cancelled Plt Count Cancelled Seg Neutrophils % Cancelled Carbonic Acid 1.87 H HCO3/H2CO3 Ratio 5:1 ABG pH 6.87 L* ABG pCO2 62.1 H ABG pO2 74.2 L ABG HCO3 11.1 L ABG O2 Saturation 80.2 L ABG Base Excess -22.4 FiO2 100 Sodium 142.1 Potassium 5.1 H Chloride 101 Carbon Dioxide 12 L Anion Gap 29 H BUN 66 H Creatinine 4.89 H Est GFR ( Amer) 15 L Glucose 220 H Lactic Acid Calcium 6.0 L* Magnesium 4.0 H Total Bilirubin 4.1 H AST 1260 H Alkaline Phosphatase 303 H Total Protein 5.9 L Albumin 2.0 L 06/03/20 06/03/20 06/03/20 04:53 04:53 06:23 WBC RBC Hgb Hct MCV MCH MCHC RDW Plt Count Seg Neutrophils % Carbonic Acid 1.54 H HCO3/H2CO3 Ratio 6:1 ABG pH 6.92 L* ABG pCO2 51.2 H ABG pO2 67.2 L ABG HCO3 10.1 L ABG O2 Saturation 77.7 L ABG Base Excess -22.2 FiO2 100 Sodium 136.8 L Potassium 4.6 Chloride 93 L Carbon Dioxide 12 L Anion Gap 32 H BUN 66 H Creatinine 5.54 H Est GFR ( Amer) 13 L Glucose 423 H* Lactic Acid 22.6 H Calcium 5.6 L* Magnesium Total Bilirubin AST Alkaline Phosphatase Total Protein Albumin 06/03/20 06:50 WBC 23.2 H RBC 3.09 L Hgb 10.6 L D Hct 34.6 L MCV 112 H D MCH 34.2 H MCHC 30.6 L RDW 18.1 H Plt Count 120 L Seg Neutrophils % Not Reportable Carbonic Acid HCO3/H2CO3 Ratio ABG pH ABG pCO2 ABG pO2 ABG HCO3 ABG O2 Saturation ABG Base Excess FiO2 Sodium Potassium Chloride Carbon Dioxide Anion Gap BUN Creatinine Est GFR ( Amer) Glucose Lactic Acid Calcium Magnesium Total Bilirubin AST Alkaline Phosphatase Total Protein Albumin 05/27/20 05/27/20 08:23 08:23 Creatine Kinase 165 CK-MB (CK-2) 1.07 Troponin I < 0.012 Impressions: Abdomen Ultrasound 05/27/20 09:16 IMPRESSION: No evidence of cholelithiasis or cholecystitis. Nonvisualization of the pancreas and abdominal aorta due to obscuration by intervening bowel gas. Otherwise unremarkable examination. Chest/Abdomen CTA 05/27/20 11:25 IMPRESSION: 1. No evidence for acute pulmonary emboli. 2. Extensive bilateral multifocal peripheral and parenchymal ground-glass opacities/consolidation and areas of consolidation in the lower lobes bilaterally. Commonly reported imaging features of COVID-19 pneumonia are present. 3. Mediastinal and right hilar lymphadenopathy. 3. Additional findings as above. Abdomen/Pelvis CT 05/27/20 11:26 IMPRESSION: 1. Hepatic steatosis. 2. Prominence of the gallbladder wall. No gallstones. 3. Small uncomplicated inguinal hernias. KUB X-Ray 06/01/20 10:43 IMPRESSION: NG tube is in place. Gas pattern is nonspecific. All labs, radiographs, diagnostic studies and EKGs were personally reviewed: Yes In addition, reports of radiographic and diagnostic studies were read: Yes Assessment and Plan - Diagnosis (1) Acute respiratory failure due to COVID-19 Is this a current diagnosis for this admission?: Yes Plan: Causing significant problems including yesterday"s arrest. Although he is young his prognosis is quite poor. (2) Hypoxia Is this a current diagnosis for this admission?: Yes Plan: Even on 100% FiO2 his saturation is 87-90% (3) Obesity (BMI 30.0-34.9) Is this a current diagnosis for this admission?: Yes Plan: Chronic (4) ARF (acute renal failure) Qualifiers: Acute renal failure type: with acute tubular necrosis Qualified Code(s): N17.0 - Acute kidney failure with tubular necrosis Is this a current diagnosis for this admission?: Yes Plan: His GFR, BUN/Cr are worse. He is acidotic from lactate and renal issues. He needs HD however he may not be stable enough, CRRT not done here. He is quite unstable for transfer. Plan Summary: Will speak with Dr. Sy about attempting HD. Critical Time Critical Time (minutes): 40 Level of Care: ICU Anticipated discharge: Other Anticipated DC Timeframe: Other -: 1. The care of a critical patient is a dynamic process. This note is a installation service representative synopsis but static in nature. The timeframe for treatments given in order is not necessarily the actual time these treatments may have been done. 2. This patient requires critical care secondary to ongoing requirements for therapy not offered or safe outside the critical care environment. Transfer to a lower level of care will result in altered life or limb morbidity and mortal ity. 3. Multidisciplinary rounds completed. 4. ABCDE bundle addressed.
[2020-06-03] MEDS ORDERED: ENOXAPARIN SODIUM INJ 80 MG/0.8 ML DISP.SYRIN SUBCUT SCH (10:00)
[2020-06-03] MEDS: ZINC SULFATE 220 MG CAPSULE PO SCH (10:25)
[2020-06-03] MEDS: DEXAMETHASONE SOD PHOS INJ 10 MG/1 ML VIAL IV SCH (10:25)
[2020-06-03] MEDS: PANTOPRAZOLE SODIUM 40 MG VIAL IV SCH (10:25)
[2020-06-03] MEDS: CHOLECALCIFEROL (D3) 1,000 UNIT (25 MCG) TABLET PO SCH (10:25)
[2020-06-03] MEDS: AZITHROMYCIN 500 MG in DEXTROSE 5%-WATER 250 ML IV SCH (10:25)
[2020-06-03] MEDS ORDERED: VASOPRESSIN INJ 20 UNIT/1 ML VIAL ONE (11:19)
[2020-06-03 12:33] LABS: ALBUMIN 1.8 g/dL (3.5-5.0); ALKALINE PHOSPHATASE 510 U/L (38-126); BLOOD UREA NITROGEN 66 mg/dL (7-20); POTASSIUM 4.5 mmol/L (3.6-5.0)
[2020-06-03 12:34] LABS: BILIRUBIN,DIRECT 4.2 mg/dL (0.0-0.4); BILIRUBIN,TOTAL 5.5 mg/dL (0.2-1.3); TOTAL PROTEIN 5.1 g/dL (6.3-8.2)
[2020-06-03] MEDS ORDERED: DEXTROSE 5%-WATER 250 ML with VASOPRESSIN 100 UNIT IV PRN ×2 (12:36)
[2020-06-03 12:41] LABS: CHLORIDE 86 mmol/L (98-107)
[2020-06-03] MEDS ORDERED: CALCIUM GLUCONATE 1000 MG/10 ML INJ IV ONE (12:48)
[2020-06-03 12:57] LABS: CARBON DIOXIDE 16 mmol/L (22-30)
[2020-06-03] MEDS ORDERED: HEPARIN SOD (PORCINE) 1,000 UNIT/ML 10 ML VIAL IV PRN (13:00)
[2020-06-03 13:04] LABS: PATH REVIEW PATHOLOGIST REVIEWED
[2020-06-03 13:05] LABS: ANION GAP 28 (5-19); ASPARTATE AMINO TRANSFERASE 5828 U/L (17-59)
[2020-06-03 13:06] LABS: CALCIUM 5.1 mg/dL (8.4-10.2)
[2020-06-03 13:07] LABS: GLUCOSE 544 mg/dL (75-110)
[2020-06-03] MEDS: CALCIUM GLUCONATE 1 GM/NS 50 ML RTU IV SCH ×4 (13:21→18:45)
--- NOTE | 2020-06-03 14:13 | Operative Report ---
Nonrecallable Operative Report DATE OF SURGERY: 06/03/20 PREOPERATIVE DIAGNOSIS: Renal failure, hypotension COVID positive POSTOPERATIVE DIAGNOSIS: Renal failure, hypotension, COVID positive OPERATION: Try analysis catheter placement right femoral vein SURGEON: AIDEE DE LA ROSA ANESTHESIA: Local TISSUE REMOVED OR ALTERED: None COMPLICATIONS: None ESTIMATED BLOOD LOSS: 10 cc INTRAOPERATIVE FINDINGS: See note PROCEDURE: Procedure was accomplished at the patient's bedside in the intensive care unit. Patient is COVID positive. After appropriate timeout site verification the right groin was prepped and draped in usual sterile fashion. The right femoral vein was cannulated with a 16-gauge needle a wire was placed through the needle into the inferior vena cava. Serial dilators were then used over the wire after a small skin incision was made with an 11 blade. Once the tract was dilated the trial assist catheter was placed over the wire into the femoral vein up through the iliac vein into the inferior vena cava. The catheter flushed well and withdrew well. He was then heparinized with a heparinized saline solution. It was fixed to the skin with 3-0 nylon suture. A sterile dressing was applied which completed the procedure. Estimated blood loss less than 10 cc. Patient tolerated the procedure well.
[2020-06-03] MEDS ORDERED: INSULIN GLARGINE,HUM.REC.ANLOG 1,000 UNIT/10 ML VIAL (PYX) SUBCUT ONE (18:00)
[2020-06-03] MEDS ORDERED: EPINEPHRINE INJ/PF 1 MG/1 ML AMPULE ONE (19:07)
[2020-06-03] MEDS: EPINEPHRINE IV PRN ×6 (19:10→23:23)
[2020-06-03] MEDS: NORMAL SALINE IV PRN ×6 (19:10→23:23)
[2020-06-03 20:40] LABS: ALBUMIN 2.7 g/dL (3.5-5.0); ANION GAP 19 (5-19); BLOOD UREA NITROGEN 38 mg/dL (7-20); CARBON DIOXIDE 24 mmol/L (22-30); CHLORIDE 90 mmol/L (98-107); GLUCOSE 312 mg/dL (75-110)
[2020-06-03 20:41] LABS: ALKALINE PHOSPHATASE 1493 U/L (38-126); BILIRUBIN,DIRECT 5.7 mg/dL (0.0-0.4); BILIRUBIN,TOTAL 8.4 mg/dL (0.2-1.3); TOTAL PROTEIN 7.3 g/dL (6.3-8.2)
[2020-06-03 21:02] LABS: ASPARTATE AMINO TRANSFERASE 22958 U/L (17-59)
[2020-06-03 21:03] LABS: CALCIUM 6.6 mg/dL (8.4-10.2)
[2020-06-03 21:21] LABS: ARTERIAL BLOOD BASE EXCESS -9.5 mmol/L; ARTERIAL BLOOD H2CO3 1.93 mmol/L (1.05-1.35); ARTERIAL BLOOD HCO3 20.3 mmol/L (20-24); ARTERIAL BLOOD PCO2 64.1 mmHg (35-45); ARTERIAL BLOOD TOTAL CO2 22.3 mmol/L (23-27)
[2020-06-03 21:23] LABS: ARTERIAL BLOOD FIO2 100%; ARTERIAL BLOOD PH 7.12 (7.35-7.45); ARTERIAL BLOOD PO2 27.9 mmHg (80-100)
[2020-06-03] MEDS: NORMAL SALINE 250 ML with NOREPINEPHRINE BITARTRATE 4 MG IV PRN ×2 (21:45)
[2020-06-03] MEDS: 1/2 NORMAL SALINE IV PRN ×2 (21:45)
[2020-06-03] MEDS: SODIUM BICARBONATE IV PRN ×2 (21:45)
[2020-06-03] MEDS: ASPIRIN 81 MG TABLET, ENT COATED PO SCH (22:06)
--- NOTE | 2020-06-03 22:06 | Progress Note ---
Provider Note Provider Note: Patient repeat ABG with PG improved to 7.1 and his PO2 resulted at 27. I suspect the sample is venous as the patient is hypoxic with sat monitoring reading mid 70's to low 80's., despite ventilatory efforts. The PCO2 was elevated and i did max his rate to 35. I considered proning the patient at this point but due to his unstable hemodynamic state I do not feel the patient would tolerate proning at this time. Patient is over breathing vent and appears very uncomfortable. I personally discussed with the patients brother and girlfriend that his prognosis was very poor.
[2020-06-03] MEDS: NORMAL SALINE 250 ML with VASOPRESSIN 100 UNIT IV PRN ×2 (22:08)
[2020-06-04] MEDS: SODIUM BICARBONATE IV PRN ×4 (00:04→07:30)
[2020-06-04] MEDS: 1/2 NORMAL SALINE IV PRN ×4 (00:04→07:30)
[2020-06-04] MEDS: NORMAL SALINE 250 ML with VASOPRESSIN 100 UNIT IV PRN ×6 (00:06→08:21)
[2020-06-04] MEDS: NORMAL SALINE 250 ML with NOREPINEPHRINE BITARTRATE 4 MG IV PRN ×6 (00:06→09:40)
[2020-06-04] MEDS: NORMAL SALINE 100 ML with INSULIN REGULAR, HUMAN 100 UNIT IV PRN ×2 (00:26)
[2020-06-04 00:57] LABS: ALBUMIN 2.2 g/dL (3.5-5.0); ALKALINE PHOSPHATASE 973 U/L (38-126); BILIRUBIN,DIRECT 5.7 mg/dL (0.0-0.4); BILIRUBIN,TOTAL 7.1 mg/dL (0.2-1.3); BLOOD UREA NITROGEN 39 mg/dL (7-20); CHLORIDE 87 mmol/L (98-107); GLUCOSE 336 mg/dL (75-110); TOTAL PROTEIN 5.5 g/dL (6.3-8.2)
[2020-06-04] MEDS ORDERED: SILDENAFIL CITRATE 20 MG TABLET PO ONE (01:00)
[2020-06-04 01:05] LABS: CARBON DIOXIDE 16 mmol/L (22-30)
[2020-06-04 01:09] LABS: ANION GAP 25 (5-19)
[2020-06-04 01:21] LABS: ASPARTATE AMINO TRANSFERASE 27023 U/L (17-59)
[2020-06-04 01:22] LABS: POTASSIUM 4.7 mmol/L (3.6-5.0)
[2020-06-04 01:23] LABS: CALCIUM 5.2 mg/dL (8.4-10.2)
[2020-06-04] MEDS ORDERED: ALBUMIN HUMAN 12.5 GM/50 ML RTUINJ IV ONE (01:39)
[2020-06-04] MEDS: ALBUMIN HUMAN 12.5 GM/50 ML RTUINJ IV SCH ×2 (02:16→03:04)
[2020-06-04] MEDS: CALCIUM GLUC IN NACL, ISO-OSM 1 GM/50 ML RTUPB IV SCH ×2 (02:16→03:05)
[2020-06-04] MEDS: NORMAL SALINE IV PRN ×4 (02:40→06:20)
[2020-06-04] MEDS: EPINEPHRINE IV PRN ×4 (02:40→06:20)
[2020-06-04 02:41] LABS: ARTERIAL BLOOD BASE EXCESS -18.6 mmol/L; ARTERIAL BLOOD H2CO3 1.66 mmol/L (1.05-1.35); ARTERIAL BLOOD HCO3 13.1 mmol/L (20-24); ARTERIAL BLOOD O2 SATURATION 29.8 % (94-98); ARTERIAL BLOOD PCO2 55.3 mmHg (35-45); ARTERIAL BLOOD TOTAL CO2 14.8 mmol/L (23-27)
[2020-06-04 02:43] LABS: ARTERIAL BLOOD FIO2 100%
[2020-06-04 02:44] LABS: ARTERIAL BLOOD PH 6.99 (7.35-7.45); ARTERIAL BLOOD PO2 28.2 mmHg (80-100)
[2020-06-04] MEDS ORDERED: SODIUM BICARBONATE 8.4% INJ 50 MEQ/50 ML DISP.SYRIN ONE (02:57)
[2020-06-04] MEDS ORDERED: SODIUM BICARBONATE 8.4% INJ 50 MEQ/50 ML DISP.SYRIN IV ONE (03:13)
[2020-06-04] MEDS ORDERED: VASOPRESSIN INJ 20 UNIT/1 ML VIAL ONE ×2 (04:05→08:08)
[2020-06-04] MEDS: PIPERACILLIN SODIUM/TAZOBACTAM 2.25 GM in NORMAL SALINE 50 ML IV SCH (05:00)
[2020-06-04 05:37] LABS: ARTERIAL BLOOD BASE EXCESS -17.3 mmol/L; ARTERIAL BLOOD H2CO3 1.67 mmol/L (1.05-1.35); ARTERIAL BLOOD HCO3 13.1 mmol/L (20-24); ARTERIAL BLOOD O2 SATURATION 29.6 % (94-98); ARTERIAL BLOOD PCO2 55.4 mmHg (35-45); ARTERIAL BLOOD TOTAL CO2 14.8 mmol/L (23-27)
[2020-06-04 05:39] LABS: ARTERIAL BLOOD FIO2 100
[2020-06-04 05:40] LABS: HEMATOCRIT 21.6 % (37.9-51.0); MEAN CORPUSCULAR HEMOGLOBIN 35.9 pg (27.0-33.4); MEAN CORPUSCULAR HGB CONC 32.6 g/dL (32.0-36.0); MEAN CORPUSCULAR VOLUME 110 fl (80-97); RED BLOOD COUNT 1.96 10^6/uL (4.35-5.55); RED CELL DISTRIBUTION WIDTH 17.2 % (11.5-14.0); WHITE BLOOD COUNT 11.2 10^3/uL (4.0-10.5)
[2020-06-04 05:41] LABS: ARTERIAL BLOOD PH 6.99 (7.35-7.45)
[2020-06-04 05:54] LABS: POTASSIUM 5.4 mmol/L (3.6-5.0)
[2020-06-04 06:00] LABS: CARBON DIOXIDE 13 mmol/L (22-30)
[2020-06-04] MEDS ORDERED: INSULIN GLARGINE,HUM.REC.ANLOG 1,000 UNIT/10 ML VIAL SUBCUT SCH (06:00)
[2020-06-04 06:16] LABS: ALKALINE PHOSPHATASE 829 U/L (38-126); BILIRUBIN,DIRECT 5.7 mg/dL (0.0-0.4); BILIRUBIN,TOTAL 7.2 mg/dL (0.2-1.3); BLOOD UREA NITROGEN 36 mg/dL (7-20); GLUCOSE 123 mg/dL (75-110); TOTAL PROTEIN 4.9 g/dL (6.3-8.2); TRIGLYCERIDES 152 mg/dL (<150)
[2020-06-04 06:17] LABS: CHLORIDE 90 mmol/L (98-107)
[2020-06-04 06:21] LABS: ANION GAP 31 (5-19); ASPARTATE AMINO TRANSFERASE 26415 U/L (17-59); CALCIUM 5.4 mg/dL (8.4-10.2)
[2020-06-04 06:56] LABS: PLATELET COUNT 32 10^3/uL (150-450)
[2020-06-04 06:59] LABS: ABSOLUTE LYMPHOCYTES# (MANUAL) 1.5 10^3/uL (0.5-4.7); ABSOLUTE MONOCYTES # (MANUAL) 0.9 10^3/uL (0.1-1.4); ANISOCYTOSIS 1+; BAND NEUTROPHILS % (MANUAL) 2 % (3-5); BASOPHILS % (MANUAL) 0 % (0-2); EOSINOPHILS % (MANUAL) 0 % (0-6); LYMPHOCYTES % (MANUAL) 13 % (13-45); MONOCYTES % (MANUAL) 8 % (3-13); SEGMENTED NEUTROPHILS % (MAN) 77 % (42-78); TOTAL CELLS COUNTED 100
[2020-06-04 07:00] LABS: PLATELET COMMENT DECREASED
--- NOTE | 2020-06-04 08:06 | PDOC CRITICAL CARE PROG REPORT ---
General Date:: 06/04/20 ICU Day:: 3 Ventilator Day:: 3 Hospital Day:: 8 Resuscitation Status: Full Code Events in the past 12 to 24 Hours:: Oxygenation worse despite maximal efforts. Neuro response simply overbreathing v ent. Review of systems relevant to events:: Pulmonary. CV. Neurologic. Reason for ICU Addmission:: Needs intubation for covid PNA - Medications: Medications reviewed and adjusted accordingly: Yes Vasopressors:: Vasopressin, levophed, epinephrine. Sedation:: None Physical Exam Vital Signs: Temp Pulse Resp BP Pulse Ox 93.2 F L 88 35 H 126/58 H 30 L 06/04/20 07:41 06/04/20 07:41 06/04/20 07:41 06/04/20 07:41 06/04/20 07:41 Intake & Output 06/03/20 06/04/20 06/05/20 06:59 06:59 06:59 Intake Total 3725 8574 Output Total 592 2 Balance 3133 8572 Weight 85.8 kg 96.9 kg Weight/Height Weight 96.9 kg Height 5 ft 2 in General appearance: PRESENT: no acute distress, obese Head exam: PRESENT: atraumatic, normocephalic Eye exam: PRESENT: conjunctiva pink, EOMI, PERRLA. ABSENT: scleral icterus Ear exam: PRESENT: bleeding Mouth exam: PRESENT: moist, tongue midline Respiratory exam: PRESENT: crackles - Dry sounding C/W covid., decreased breath sounds, symmetrical, unlabored Cardiovascular exam: PRESENT: RRR. ABSENT: diastolic murmur, rubs, systolic murmur Rectal exam: PRESENT: deferred Gentrourinary exam: PRESENT: indwelling catheter Extremities exam: PRESENT: +1 edema Musculoskeletal exam: PRESENT: normal inspection Neurological exam: PRESENT: other - At this point he is on no sedation. He is overbreathing the ventilator. He has no response to pain, voice, not moving. GCS 3. Skin exam: PRESENT: dry, intact, warm. ABSENT: cyanosis, rash Tubes/Lines: PRESENT: Endotracheal Tube, Central Line, Dialysis catheter, Nasogastic Tube Laboratory/Radiographs Laboratory Results: 06/04/20 05:20 06/04/20 05:20 06/03/20 06/03/20 06/03/20 12:00 13:57 15:50 WBC RBC Hgb Hct MCV MCH MCHC RDW Plt Count Seg Neutrophils % Carbonic Acid HCO3/H2CO3 Ratio ABG pH ABG pCO2 ABG pO2 ABG HCO3 ABG O2 Saturation ABG Base Excess FiO2 Sodium 130.3 L Potassium 4.5 Chloride 86 L Carbon Dioxide 16 L Anion Gap 28 H BUN 66 H Creatinine 5.69 H Est GFR ( Amer) 13 L Est GFR (Non-Af Amer) Glucose 544 H* 562 H* 568 H* Calcium 5.1 L* Ionized Calcium Iris Total Bilirubin 5.5 H AST 5828 H Alkaline Phosphatase 510 H Total Protein 5.1 L Albumin 1.8 L Triglycerides 06/03/20 06/03/20 06/03/20 18:12 18:30 20:41 WBC RBC Hgb Hct MCV MCH MCHC RDW Plt Count Seg Neutrophils % Carbonic Acid 1.93 H HCO3/H2CO3 Ratio 10:1 ABG pH 7.12 L* ABG pCO2 64.1 H ABG pO2 27.9 L* ABG HCO3 20.3 ABG O2 Saturation 35.0 L ABG Base Excess -9.5 FiO2 100% Sodium Cancelled 133.1 L Potassium Cancelled 4.0 Chloride Cancelled 90 L Carbon Dioxide Cancelled 24 Anion Gap Cancelled 19 BUN Cancelled 38 H D Creatinine Cancelled 3.36 H Est GFR ( Amer) Cancelled 24 L Est GFR (Non-Af Amer) Cancelled Glucose Cancelled 312 H Calcium Cancelled 6.6 L* Ionized Calcium Iris Total Bilirubin Cancelled 8.4 H D AST Cancelled 80425 H Alkaline Phosphatase Cancelled 1493 H Total Protein Cancelled 7.3 Albumin Cancelled 2.7 L Triglycerides 06/04/20 06/04/20 06/04/20 00:23 02:32 05:20 WBC RBC Hgb Hct MCV MCH MCHC RDW Plt Count Seg Neutrophils % Carbonic Acid 1.66 H HCO3/H2CO3 Ratio 7:1 ABG pH 6.99 L* ABG pCO2 55.3 H ABG pO2 28.2 L* ABG HCO3 13.1 L ABG O2 Saturation 29.8 L ABG Base Excess -18.6 FiO2 100% Sodium 127.6 L 133.7 L Potassium 4.7 5.4 H Chloride 87 L 90 L Carbon Dioxide 16 L 13 L Anion Gap 25 H 31 H BUN 39 H 36 H Creatinine 3.74 H 4.10 H Est GFR ( Amer) 21 L 19 L Est GFR (Non-Af Amer) Glucose 336 H 123 H Calcium 5.2 L* 5.4 L* Ionized Calcium Iris Total Bilirubin 7.1 H 7.2 H AST 57403 H 42521 H Alkaline Phosphatase 973 H 829 H Total Protein 5.5 L 4.9 L Albumin 2.2 L 2.0 L Triglycerides 152 H 06/04/20 06/04/20 05:20 05:20 WBC 11.2 H RBC 1.96 L Hgb 7.0 L D Hct 21.6 L MCV 110 H MCH 35.9 H MCHC 32.6 RDW 17.2 H Plt Count 32 L Seg Neutrophils % Not Reportable Carbonic Acid 1.67 H HCO3/H2CO3 Ratio 7:1 ABG pH 6.99 L* ABG pCO2 55.4 H ABG pO2 28.3 L* ABG HCO3 13.1 L ABG O2 Saturation 29.6 L ABG Base Excess -17.3 FiO2 100 Sodium Potassium Chloride Carbon Dioxide Anion Gap BUN Creatinine Est GFR ( Amer) Est GFR (Non-Af Amer) Glucose Calcium Ionized Calcium Iris 0.71 L Total Bilirubin AST Alkaline Phosphatase Total Protein Albumin Triglycerides 05/27/20 05/27/20 08:23 08:23 Creatine Kinase 165 CK-MB (CK-2) 1.07 Troponin I < 0.012 Impressions: Abdomen Ultrasound 05/27/20 09:16 IMPRESSION: No evidence of cholelithiasis or cholecystitis. Nonvisualization of the pancreas and abdominal aorta due to obscuration by intervening bowel gas. Otherwise unremarkable examination. Chest/Abdomen CTA 05/27/20 11:25 IMPRESSION: 1. No evidence for acute pulmonary emboli. 2. Extensive bilateral multifocal peripheral and parenchymal ground-glass opacities/consolidation and areas of consolidation in the lower lobes bilater ally. Commonly reported imaging features of COVID-19 pneumonia are present. 3. Mediastinal and right hilar lymphadenopathy. 3. Additional findings as above. Abdomen/Pelvis CT 05/27/20 11:26 IMPRESSION: 1. Hepatic steatosis. 2. Prominence of the gallbladder wall. No gallstones. 3. Small uncomplicated inguinal hernias. KUB X-Ray 06/01/20 10:43 IMPRESSION: NG tube is in place. Gas pattern is nonspecific. All labs, radiographs, diagnostic studies and EKGs were personally reviewed: Yes In addition, reports of radiographic and diagnostic studies were read: Yes Assessment and Plan - Diagnosis (1) Acute respiratory failure due to COVID-19 Is this a current diagnosis for this admission?: Yes Plan: He is irreversably hypoxic despite high PEEP and 100% FiO2. He is likely not going to survive. I do not expect him to live beyond today. Girlfriend and brother are aware and girlfriend will be visiting soon. (2) Hypoxia Is this a current diagnosis for this admission?: Yes Plan: O2 saturations have fluctuated between 30 and 60%. (3) Obesity (BMI 30.0-34.9) Is this a current diagnosis for this admission?: Yes Plan: With edema fluid his weight is somewhat artificially higher. He was somewhat obese on admission. (4) ARF (acute renal failure) Qualifiers: Acute renal failure type: with acute tubular necrosis Qualified Code(s): N17.0 - Acute kidney failure with tubular necrosis Is this a current diagnosis for this admission?: Yes Plan: Tolerated HD but required higher pressor dose. Plan Summary: Unfortunately there is no effective therapy for this degree of hypoxia. Too unstable to consider transfer for ECMO. Critical Time Critical Time (minutes): 40 Level of Care: ICU Anticipated discharge: Other Anticipated DC Timeframe: Other -: 1. The care of a critical patient is a dynamic process. This note is a training representative synopsis but static in nature. The timeframe for treatments given in order is not necessarily the actual time these treatments may have been done. 2. This patient requires critical care secondary to ongoing requirements for therapy not offered or safe outside the critical care environment. Transfer to a lower level of care will result in altered life or limb morbidity and mortality. 3. Multidisciplinary rounds completed. 4. ABCDE bundle addressed.
--- NOTE | 2020-06-04 10:05 | RADIOLOGY REPORT (SQ) ---
EXAM DESCRIPTION: CHEST SINGLE VIEW IMAGES COMPLETED DATE/TIME: 06/04/2020 5:44 am REASON FOR STUDY: intubated COMPARISON: Chest radiograph 06/03/2020 NUMBER OF VIEWS: One view. TECHNIQUE: Single frontal radiographic view of the chest acquired. LIMITATIONS: None. FINDINGS: LUNGS AND PLEURA: Similar diffuse hazy opacities bilaterally, slightly more dense in the r etrocardiac left lower lobe. MEDIASTINUM AND HILAR STRUCTURES: No masses. Contour normal. HEART AND VASCULAR STRUCTURES: Heart normal in size. Normal vasculature. BONES: No acute findings. HARDWARE: Left internal jugular central venous catheter, enteric tube, and endotracheal tube are unch anged. OTHER: No other significant finding. IMPRESSION: No significant interval change in the appearance of the chest. TECHNICAL DOCUMENTATION: JOB ID: [id number] 2010 [employer]- All Rights Reserved Reading location - IP/workstation name: [email or web address]
[2020-06-04] MEDS ORDERED: DEXTROSE 5%-WATER 1000 ML 1,000 ML IV PRN (10:13)
[2020-06-04] MEDS ORDERED: DEXTROSE 5%-WATER 1000 ML 1,000 ML with SODIUM BICARBONATE 150 MEQ IV PRN ×2 (10:16)
[2020-06-04] MEDS ORDERED: EPINEPHRINE IV PRN ×2 (10:16)
[2020-06-04] MEDS ORDERED: DEXTROSE 5% IV PRN ×2 (10:16)
[2020-06-04] MEDS ORDERED: WATER IV PRN ×2 (10:16)
[2020-06-04] MEDS ORDERED: DEXTROSE 5%-WATER 250 ML with NOREPINEPHRINE BITARTRATE 4 MG IV PRN ×2 (10:17)
[2020-06-04] MEDS ORDERED: DEXTROSE 5%-WATER 250 ML with VASOPRESSIN 100 UNIT IV PRN ×2 (10:17)
[2020-06-04] MEDS ORDERED: DEXTROSE 5%-WATER 250 ML with PHENYLEPHRINE HCL 40 MG IV PRN ×2 (10:23)
[2020-06-04] MEDS ORDERED: PHENYLEPHRINE HCL INJ/PF 10 MG/1 ML SDV ONE (10:24)
--- NOTE | 2020-06-04 11:06 | Death Summary ---
Summary Date : 06/04/20 Time of :: 10:47 Autopsy: No Resuscitation Status: Full Code Consulting Provider: Edilson Garcia MD - Final Diagnosis (1) Acute respiratory failure due to COVID-19 Is this a current diagnosis for this admission?: Yes (2) Hypoxia Is this a current diagnosis for this admission?: Yes (3) Obesity (BMI 30.0-34.9) Is this a current diagnosis for this admission?: Yes (4) ARF (acute renal failure) Is this a current diagnosis for this admission?: Yes Hospital Course:: This patient was a 50 yo man admitted to the medical service and found to be COVID-19 positive. His admitting complaints were largely respiratory. He progressed from a non-rebreather mask to bipap eventually bipap at 100 % before the ICU. Prior to physical transfer the patient had some anxiety and was emergantly intubated on the [facility] floor. He then spent 3 days in the ICU on an unstoppable downward coarse. He had ARF with a need for HD. A pressor requirement that included epinephrine, neosynephrine, vasopressin. He had 2 cardiac arrests before his final arrest and never regained neurologic recovery. He finally became bradycardic ti 28 and was in arrest on the morning of 06/04. CPR was again instituted with ACLS protocol followed with 4 rounds of epinephrine given. Despite this asystole was present throughout and confirmed in 2 leads. No pulse felt and the patient was pronounced at 1047 AM. The family has been attentive and present throughout this ordeal.
[2020-06-04 14:00] VITALS: BP 39/27
[2020-06-04] MEDS: PANTOPRAZOLE SODIUM 40 MG VIAL IV SCH (14:08)
[2020-06-04] MEDS: CHOLECALCIFEROL (D3) 1,000 UNIT (25 MCG) TABLET PO SCH (14:08)
[2020-06-04] MEDS: DEXAMETHASONE SOD PHOS INJ 10 MG/1 ML VIAL IV SCH (14:08)
[2020-06-04] MEDS: ZINC SULFATE 220 MG CAPSULE PO SCH (14:09)
[2020-06-05 07:37] LABS: HEPATITS B SURFACE ANTIGEN Negative (Negative)
[2020-06-05 15:35] LABS: HEPATITIS C VIRUS ANTIBODY 0.2 s/co ratio (0.0-0.9)
--- NOTE | 2020-06-05 21:51 | PDOC PROGRESS REPORT ---
Subjective Progress Note for:: 06/03/20 Reason For Visit: Is late note for patient seen on the . He was seen in the ICU on dialysis. Patient looks extremely sick and moribund. Blood pressure is rather tenuous in spite of being on pressors. Labs and medications were reviewed. Dialysis orders were reviewed with the treating dialysis nurse. Physical Exam Vital Signs: Temp Pulse Resp BP Pulse Ox 93.2 F L 88 11 L 39/27 L 24 L 06/04/20 07:41 06/04/20 07:41 06/04/20 10:39 06/04/20 10:40 06/04/20 10:32 Intake & Output 06/04/20 06/05/20 06/06/20 06:59 06:59 06:59 Intake Total 9574 1508 Output Total 2 0 Balance 9572 1508 Weight 96.9 kg Exam: Patient looks extremely sick and moribund. He is intubated and sedated. Respiratory exam: PRESENT: clear to auscultation mayela. ABSENT: crackles Cardiovascular exam: PRESENT: +S1, +S2 GI/Abdominal exam: PRESENT: normal bowel sounds, soft. ABSENT: organomegaly Results Laboratory Results: 06/04/20 05:20 06/04/20 05:20 05/27/20 05/27/20 08:23 08:23 Creatine Kinase 165 CK-MB (CK-2) 1.07 Troponin I < 0.012 Impressions: Abdomen Ultrasound 05/27/20 09:16 IMPRESSION: No evidence of cholelithiasis or cholecystitis. Nonvisualization of the pancreas and abdominal aorta due to obscuration by intervening bowel gas. Otherwise unremarkable examination. Chest/Abdomen CTA 05/27/20 11:25 IMPRESSION: 1. No evidence for acute pulmonary emboli. 2. Extensive bilateral multifocal peripheral and parenchymal ground-glass opacities/consolidation and areas of consolidation in the lower lobes bilaterally. Commonly reported imaging features of COVID-19 pneumonia are present. 3. Mediastinal and right hilar lymphadenopathy. 3. Additional findings as above. Abdomen/Pelvis CT 05/27/20 11:26 IMPRESSION: 1. Hepatic steatosis. 2. Prominence of the gallbladder wall. No gallstones. 3. Small uncomplicated inguinal hernias. KUB X-Ray 06/01/20 10:43 IMPRESSION: NG tube is in place. Gas pattern is nonspecific. Chest X-Ray 06/04/20 05:00 IMPRESSION: No significant interval change in the appearance of the chest. Assessment & Plan - Diagnosis (1) ARF (acute renal failure) Qualifiers: Acute renal failure type: with acute tubular necrosis Qualified Code(s): N17.0 - Acute kidney failure with tubular necrosis Is this a current diagnosis for this admission?: Yes Plan: This is a patient with Covid pneumonia and respiratory failure now intubated and sedated showing acute kidney insult with decreasing urine output along with hyperkalemia and acidosis. Patient has had a temporary catheter placed and is being dialyzed. Looks like it is going to be difficult to dialyze him given his very tenuous blood pressures. Therefore will keep him positive. Dialysis orders were reviewed with treating dialysis nurse.. (2) Acute respiratory failure due to COVID-19 Is this a current diagnosis for this admission?: Yes Plan: On appropriate medications and being managed by Dr. Altamirano/shuttle inspector. (3) Bilateral pneumonia Qualifiers: Pneumonia type: due to unspecified organism Lung location: lower lobe of lung Qualified Code(s): J18.9 - Pneumonia, unspecified organism Is this a current diagnosis for this admission?: Yes Plan: Secondary to covid pneumonia. (4) Hyperkalemia Plan: See response to HD. (5) Obesity (BMI 30.0-34.9) Is this a current diagnosis for this admission?: Yes
[2020-06-06 07:31] LABS: ARTERIAL BLOOD PO2 28.3 mmHg (80-100)
== END 2020-06-04 10:47 | DRG 208 ==
LOC: ER 07:41 → EH 14:17 → ICU 20:00 → 3N 05-29 10:26 → ICU 06-01 10:49
PROVIDERS: ADMIT Anesthesiology; ATTEND Anesthesiology
PROC: XW033E5 Introduction of Remdesivir Anti-infective into Peripheral Vein, Percutaneous Approach, New Technology Group 5 (ICD-10-PCS; 2020-05-29)
PROC: XW13325 Transfusion of Convalescent Plasma (Nonautologous) into Peripheral Vein, Percutaneous Approach, New Technology Group 5 (ICD-10-PCS; 2020-05-30)
PROC: 5A1945Z Respiratory Ventilation, 24-96 Consecutive Hours (ICD-10-PCS; principal; 2020-06-01)
PROC: 0BH17EZ Insertion of Endotracheal Airway into Trachea, Via Natural or Artificial Opening (ICD-10-PCS; 2020-06-01)
PROC: 02HV33Z Insertion of Infusion Device into Superior Vena Cava, Percutaneous Approach (ICD-10-PCS; 2020-06-02)
PROC: 06HM33Z Insertion of Infusion Device into Right Femoral Vein, Percutaneous Approach (ICD-10-PCS; 2020-06-03)
DX: U07.1 COVID-19 (principal); J12.89 Other viral pneumonia; J96.01 Acute respiratory failure with hypoxia; A41.9 Sepsis, unspecified organism; N17.0 Acute kidney failure with tubular necrosis; R65.20 Severe sepsis without septic shock; E87.5 Hyperkalemia; I46.9 Cardiac arrest, cause unspecified; E66.9 Obesity, unspecified; Z68.39 Body mass index [BMI] 39.0-39.9, adult; R74.0 Nonspecific elevation of levels of transaminase and lactic acid dehydrogenase [LDH]
CPT/HCPCS: 31500; 36415; 36430; 36556; 36600; 71045; 71275; 74018; 74177; 76705; 80048; 80053; 80074; 80307; 82330; 82550; 82553; 82728; 82803; 82947; 82962; 83605; 83615; 83690; 83735; 84478; 84484; 85025; 85379; 85652; 86140; 86317; 86900; 86901; 87040; 87070; 87340; 87635; 87880; 92950; 93005; 93010; 94002; 94003; 94640; 94660; 96361; 96365; 96375; 99285; 99291; J0610; C9113; C9803; J0171; J0330; J0456; J0692; J1100; J1170; J1644; J1650; J1815; J2543; J2704; J3010; J3370; J3490; J7030; J7040; J7050; J7060; J7613; P9047